=== PATIENT | female | born 2000 | race Asian ===

== ENCOUNTER → 2020-06-12 15:05 | Outpatient (BNVA) | payer MEDICAID, SELFPAY | PROVIDERS: Family Provider Pediatrics Adolescent Medicine; Visit Provider Registered Nurse | DX: J02.9 Acute pharyngitis, unspecified (principal) | CPT/HCPCS: 87880 ==

== ENCOUNTER → 2021-04-22 09:57 | Outpatient (BNVA) | payer MEDICAID, SELFPAY | PROVIDERS: Family Provider Pediatrics Adolescent Medicine; Visit Provider Obstetrics & Gynecology | DX: R39.9 Unspecified symptoms and signs involving the genitourinary system (principal) | CPT/HCPCS: 81000; 87086 ==

== ENCOUNTER 2022-02-11 09:48 | Emergency (ER) | payer MEDICAID, SELFPAY ==
[2022-02-11 09:59] VITALS: BP 107/73; PULSE 87; RESP 14; TEMP 36.4; O2SAT 97; BMI 31.3
--- NOTE | 2022-02-11 10:17 | W.ED.ALLEREA ---
HPI - Allergic Reaction General: Chief complaint: Allergic Reaction Stated complaint: Allergic Rx to meds Time Seen by Provider: 02/11/22 09:56 Source: patient Mode of arrival: ambulatory Limitations: no limitations History of Present Illness: HPI narrative: 21-year-old female presents emergency room complaining of hives and rash that she feels like is related to antibiotics. She started cephalexin 2 weeks ago the rash came up 1 week ago her last time she took it was 1 week ago. She also has a rash between the breasts at the midline. She refers to a rash on the volar surface of her forearms medially and on the upper chest. She also states her neck and throat are swelling. She has no stridor no wheezing no respiratory distress. Onset (ago): hour(s) Associated symptoms: Reports rash; Deny abdominal pain, difficulty breathing, dysphagia, dizziness, facial swelling, hoarseness, itching, lip swelling, nausea, tongue swelling or vomiting Severity: mild Treatment prior to arrival: none Previous Allergic Reaction History: none Review of Systems Const: Denies: fever(s), chills, body aches, change in appetite, fatigue or malaise ENMT: Denies: hoarseness Card: Denies: chest pain, edema, dyspnea on exertion or orthopnea Resp: Denies: dyspnea, productive cough or non-productive cough GI: Denies: abdominal pain, nausea, vomiting or dysphagia : Denies: flank pain, difficulty voiding, dysuria, urinary frequency or urinary urgency Skin/Breast: Denies: rash or pruritus Neuro: Denies: dizziness All/Imm: Denies: tongue swelling or facial swelling PFS ED PFSH: Medical History (Updated 02/11/22 @ 10:37 by Denys Albright DO) Oral contraceptive pill surveillance RhD negative Surgical History (Updated 02/11/22 @ 10:37 by Denys Albright DO) S/P wisdom tooth extraction 12/2016- outpatient Family History Family/Other No problems noted. Other Unknown family medical history Social History Smoking and tobacco status: never smoked Alcohol intake: never Physical Exam Const: COMMON NORMALS: no acute distress and patient oriented x3 GENERAL APPEARANCE: cooperative, comfortable and well kempt NUTRITIONAL APPEARANCE: obese ORIENTATION/CONSCIOUSNESS: Yes awake, Yes oriented to person, Yes oriented to place and Yes oriented to time HENMT: COMMON NORMALS: normocephalic, atraumatic, hearing grossly normal bilaterally, EAC's normal, TM's normal bilaterally and Normal external nose present HEAD & SCALP: normocephalic and atraumatic NOSE: Normal external nose present EXTERNAL AUDITORY CANAL: EAC's normal TYMPANIC MEMBRANE: TM's normal bilaterally MOUTH: Normal oral and palatal mucosa present, lip normal and tongue normal THROAT: posterior oropharynx normal and tonsils normal Eye: COMMON NORMALS: Equal, round and reactive pupils present, EOMs intact bilaterally, conjunctivae normal and no scleral icterus CONJUNCTIVA: Yes conjunctivae normal PUPIL: Yes Equal, round and reactive pupils present Neck/C-Spine: COMMON NORMALS: no meningeal signs and no JVD Lymph: LYMPHATIC: no lymphadenopathy noted Resp: COMMON NORMALS: normal respiratory effort, No retractions, No use of accessory muscles and clear to auscultation bilaterally AUSCULTATION: clear to auscultation bilaterally Cardio: COMMON NORMALS: no JVD, regular rate, regular rhythm and No murmurs present (Cardio) RATE: regular rate RHYTHM: regular rhythm HEART SOUNDS: no murmurs : COMMON NORMALS: Yes no CVA tenderness BLADDER/KIDNEY EXAM: Yes no CVA tenderness Back/Pelvis: COMMON NORMALS: no CVA tenderness LUMBAR SPINE/LOWER BACK: Yes normal to inspection Extremity: COMMON NORMALS: normal to inspection, capillary refill normal, no clubbing, cyanosis or edema, no calf tenderness and no pedal edema Neuro: COMMON NORMALS: patient oriented x3 SENSORIUM/ORIENTATION: Yes oriented to person, Yes oriented to place and Yes oriented to time MENINGEAL SIGNS: Yes no meningeal signs Psych: APPEARANCE: Yes well kempt Skin: COMMON NORMALS: no rashes or lesions noted and turgor normal GENERAL SKIN EXAM: no rashes or lesions noted and turgor normal OTHER: Patient has a Katia-like rash between the breasts feel areas of small like a mild contact dermatitis in the upper chest is very sparse and no significant rash all on the volar surface the medial forearm. Course Vital Signs: Vital signs: Vital Signs Temperature 97.6 F 02/11/22 09:59 Pulse Rate 87 07/12/22 09:59 Respiratory Rate 14 02/11/22 09:59 Blood Pressure 107/73 02/11/22 09:59 Pulse Oximetry 97 02/11/22 09:59 MDM - Allergic Reaction Medical Decision Making No evidence on exam of any type of true allergic reaction looks more like a skin infection. We will get her set up for primary care to have her use some triamcinolone in the areas of concern and nystatin powder for the candidal infection. Did not believe this is anything to do with the Keflex she last took over 1 week ago. Medical Records I reviewed the patient's medical records. Lab Data I reviewed the patient's lab results. Discharge Plan Discharge Patient Disposition: Home Clinical Impression: Katia infection, Dermatitis Condition: Stable Prescriptions: New nystatin 100,000 unit/gram powder 1 applic topical TID Qty: 60 0RF Rx Instructions: apply powder to area between breasts triamcinolone acetonide 0.1 % cream 1 applic topical BID Qty: 80 0RF Rx Instructions: do not use on face cetirizine 10 mg tablet 10 mg PO BID Qty: 60 0RF No Action nitrofurantoin macrocrystal 100 mg capsule 100 mg PO BID 7 Days Qty: 14 0RF Rx Instructions: must administer with a meal/food Discharge Orders: Discharge ED (Routine); Ordered 02/11/22 Ordered By: Denys Albright Discharge Diet: Usual diet Discharge Activity: Resume usual activity Patient Instructions: Opioid Safety Activity Restrictions/Additional Instructions: Case management will help her get established with a primary care physician. If symptoms persist I can refer you to a maintainer central office. Coding Level of Care Code ED Television Repairer for Corby Ordoñez
[2022-02-11 10:36] VITALS: O2SAT 98
--- NOTE | 2022-02-14 12:37 | DCPLANNER ---
manager wholesale had message to speak with patient about getting established with a primary care physician. manager wholesale spoke with patient, she stated that she would follow up with a primary care physician, if she felt like she needed to. Patient did not want supportive employment case manager to get her established with a primary care.
== END 2022-02-11 10:37 | disposition home or self-care (01) ==
PROVIDERS: Emergency Provider Family Medicine
DX: L30.9 Dermatitis, unspecified (principal); B37.2 Candidiasis of skin and nail
CPT/HCPCS: 99284

== ENCOUNTER → 2022-06-03 15:07 | Outpatient (BNVA) | payer MEDICAID, SELFPAY | PROVIDERS: Visit Provider Obstetrics & Gynecology | DX: Z36.87 Encounter for antenatal screening for uncertain dates (principal) | CPT/HCPCS: 76801 ==

== ENCOUNTER 2022-06-06 11:45 | Outpatient (CLI) | payer MEDICAID, SELFPAY | END 2022-06-06 11:46 | disposition home or self-care (01) | LOC: LAB 06-07 13:05 | PROVIDERS: Visit Provider Obstetrics & Gynecology | DX: Z12.4 Encounter for screening for malignant neoplasm of cervix (principal); O09.72 Supervision of high risk pregnancy due to social problems, second trimester; N62 Hypertrophy of breast; O99.320 Drug use complicating pregnancy, unspecified trimester; F12.90 Cannabis use, unspecified, uncomplicated | CPT/HCPCS: 81025; 86592; 87491; 87591; 88175 ==

== ENCOUNTER → 2022-06-18 10:50 | Outpatient (BNVA) | payer MEDICAID, SELFPAY | PROVIDERS: Visit Provider Obstetrics & Gynecology | DX: Z34.90 Encounter for supervision of normal pregnancy, unspecified, unspecified trimester (principal); O09.72 Supervision of high risk pregnancy due to social problems, second trimester | CPT/HCPCS: 80307; 84315; 85027; 86762; 86803; 86850; 86900; 87086; 87340; 87806 ==

== ENCOUNTER → 2022-08-14 14:10 | Outpatient (BNVA) | payer MEDICAID, SELFPAY | PROVIDERS: Visit Provider Obstetrics & Gynecology | DX: Z36.87 Encounter for antenatal screening for uncertain dates (principal) | CPT/HCPCS: 76805 ==

== ENCOUNTER → 2022-08-21 09:19 | Outpatient (BNVA) | payer MEDICAID, SELFPAY | PROVIDERS: Visit Provider Nurse Practitioner Women's Health | DX: O09.90 Supervision of high risk pregnancy, unspecified, unspecified trimester (principal) | CPT/HCPCS: 81000; 82950 ==

== ENCOUNTER → 2022-08-28 08:00 | Outpatient (BNVA) | payer MEDICAID, SELFPAY | PROVIDERS: Visit Provider Obstetrics & Gynecology | DX: O09.90 Supervision of high risk pregnancy, unspecified, unspecified trimester (principal); Z3A.00 Weeks of gestation of pregnancy not specified | CPT/HCPCS: 82951; 82952 ==

== ENCOUNTER → 2022-09-16 10:53 | Outpatient (BNVA) | payer MEDICAID, SELFPAY | PROVIDERS: Visit Provider Nurse Practitioner Women's Health | DX: O09.70 Supervision of high risk pregnancy due to social problems, unspecified trimester (principal) | CPT/HCPCS: 76816; 81000; 85027; 86850 ==

== ENCOUNTER → 2022-10-02 09:30 | Outpatient (BNVA) | payer MEDICAID, SELFPAY | PROVIDERS: Visit Provider Obstetrics & Gynecology | DX: O09.70 Supervision of high risk pregnancy due to social problems, unspecified trimester (principal); R82.90 Unspecified abnormal findings in urine; Z3A.00 Weeks of gestation of pregnancy not specified | CPT/HCPCS: 81000; 85027; 87086 ==

== ENCOUNTER → 2022-10-07 08:04 | Outpatient (BNVA) | payer MEDICAID, SELFPAY | PROVIDERS: Visit Provider Obstetrics & Gynecology | DX: O09.70 Supervision of high risk pregnancy due to social problems, unspecified trimester (principal); Z3A.00 Weeks of gestation of pregnancy not specified | CPT/HCPCS: 81000 ==

== ENCOUNTER → 2022-10-14 07:42 | Outpatient (BNVA) | payer MEDICAID, SELFPAY | PROVIDERS: Visit Provider Obstetrics & Gynecology | DX: O09.93 Supervision of high risk pregnancy, unspecified, third trimester (principal); Z3A.32 32 weeks gestation of pregnancy | CPT/HCPCS: 76816; 81000; 82728; 85025 ==

== ENCOUNTER → 2022-10-28 10:09 | Outpatient (BNVA) | payer MEDICAID, SELFPAY | PROVIDERS: Visit Provider Nurse Practitioner Women's Health | DX: O09.70 Supervision of high risk pregnancy due to social problems, unspecified trimester (principal); D75.839 Thrombocytosis, unspecified; O99.019 Anemia complicating pregnancy, unspecified trimester; Z30.2 Encounter for sterilization; Z67.91 Unspecified blood type, Rh negative; O99.320 Drug use complicating pregnancy, unspecified trimester; F12.90 Cannabis use, unspecified, uncomplicated; Z3A.00 Weeks of gestation of pregnancy not specified | CPT/HCPCS: 81000; 82607; 82746; 83550 ==

== ENCOUNTER → 2022-11-11 11:28 | Outpatient (BNVA) | payer MEDICAID, SELFPAY | PROVIDERS: PCP Obstetrics & Gynecology; Visit Provider Obstetrics & Gynecology | DX: O09.70 Supervision of high risk pregnancy due to social problems, unspecified trimester (principal) | CPT/HCPCS: 81000; 85025; 87081 ==

== ENCOUNTER 2022-11-14 08:32 | Oncology outpatient (recurring) (ONCR) | payer MEDICAID, SELFPAY ==
[2022-11-07 07:51] LABS: Basophils % 0.2 %; Eosinophils # 0.1 10^3/uL (0.0-0.8); Eosinophils % 1.3 %; Hematocrit 33.8 % (37.0-47.0); Hemoglobin 10.4 g/dL (11.5-15.3); Lymphocytes # 2.9 10^3/uL (0.8-4.8); Lymphocytes % 27.4 %; Mean Corpuscular HGB Conc 30.8 g/dL (30.0-36.0); Mean Corpuscular Hemoglobin 20.2 pg (28.0-34.0); Mean Corpuscular Volume 65.5 fl (81-99); Mean Platelet Volume 9.8 fL (7.4-10.4); Monocytes # 0.6 10^3/uL (0.2-0.9); Monocytes % 5.8 %; Neutrophils # 6.83 10^3/uL (1.8-7.7); Neutrophils % 64.8 %; Nucleated Red Blood Cells % 0 %; Platelet Count 399 10^3/cmm (130-400); Red Blood Count 5.16 10^6/uL (4.1-5.3); Red Cell Distribution Width 15.9 % (12.1-15.1); White Blood Count 10.5 10^3/uL (4.0-10.0)
== END 2022-11-30 23:59 | disposition home or self-care (01) ==
PROVIDERS: PCP Obstetrics & Gynecology; Visit Provider Internal Medicine Medical Oncology
DX: O99.019 Anemia complicating pregnancy, unspecified trimester (principal); D64.9 Anemia, unspecified
CPT/HCPCS: 36415; 85025

== ENCOUNTER → 2022-11-18 10:59 | Outpatient (BNVA) | payer MEDICAID, SELFPAY | PROVIDERS: PCP Obstetrics & Gynecology; Visit Provider Obstetrics & Gynecology | DX: O09.70 Supervision of high risk pregnancy due to social problems, unspecified trimester (principal); O99.019 Anemia complicating pregnancy, unspecified trimester; D75.839 Thrombocytosis, unspecified; O99.320 Drug use complicating pregnancy, unspecified trimester; F12.90 Cannabis use, unspecified, uncomplicated; Z3A.00 Weeks of gestation of pregnancy not specified | CPT/HCPCS: 81000 ==

== ENCOUNTER → 2022-11-25 10:58 | Outpatient (BNVA) | payer MEDICAID, SELFPAY | PROVIDERS: PCP Obstetrics & Gynecology; Visit Provider Obstetrics & Gynecology | DX: O09.70 Supervision of high risk pregnancy due to social problems, unspecified trimester (principal) | CPT/HCPCS: 81000; 85025 ==

== ENCOUNTER 2022-12-02 17:50 | Outpatient (CLI) | payer MEDICAID, SELFPAY ==
[2022-12-02] VITALS (18 sets, daily range): BP systolic 112–132; BP diastolic 63–84; PULSE 85–121; RESP 15; TEMP 35.9–36.2; O2SAT 98–100; BMI 33.2
[2022-12-02 20:30] LABS: Add Urine Culture? No; Bacteria Urine 2+ /hpf; Bilirubin Urine Neg (Negative); Blood Urine Neg (Negative); Glucose Urine UA Norm (Normal); Ketones Urine 1+ (Negative); Leukocyte Esterase Urine 2+ (Negative); Mucus Urine 1+ /hpf; Nitrate Urine Negative (Negative); Protein Urine Trace (Negative); RBC Urine 0-4 /hpf (0-2); Squamous Epithelial Cell Urine 15-25 /hpf (0-5); Urine Appearance SL Hazy (CLEAR); Urine Color Yellow (Yellow); Urobilinogen Urine Neg (Negative); pH Urine 5 (5-7)
[2022-12-02] MEDS: dextrose 5%-lactated ringers 1,000 ML 999 ML IV (20:34)
== END 2022-12-02 22:35 | disposition home or self-care (01) ==
LOC: OPOB 17:55 → OBGYN 17:55
PROVIDERS: PCP Obstetrics & Gynecology; Visit Provider Obstetrics & Gynecology
DX: O47.9 False labor, unspecified (principal); Z3A.00 Weeks of gestation of pregnancy not specified
CPT/HCPCS: 36415; 59025; 81001; 99211; J7121

== ENCOUNTER → 2022-12-09 11:24 | Outpatient (BNVA) | payer MEDICAID, SELFPAY | PROVIDERS: PCP Obstetrics & Gynecology; Visit Provider Obstetrics & Gynecology | DX: O09.70 Supervision of high risk pregnancy due to social problems, unspecified trimester (principal); Z3A.00 Weeks of gestation of pregnancy not specified | CPT/HCPCS: 81000 ==

== ENCOUNTER 2022-12-10 15:31 | Inpatient (IN) | payer MEDICAID, SELFPAY ==
[2022-12-10] VITALS (13 sets, daily range): BP systolic 108–130; BP diastolic 65–84; PULSE 86–109; RESP 16; TEMP 35.7–36.4; BMI 33.4
[2022-12-10 19:02] LABS: Basophils % 0.1 %; Eosinophils # 0.1 10^3/uL (0.0-0.8); Eosinophils % 0.6 %; Hematocrit 32.1 % (37.0-47.0); Lymphocytes # 2.5 10^3/uL (0.8-4.8); Lymphocytes % 21.3 %; Mean Corpuscular HGB Conc 31.2 g/dL (30.0-36.0); Mean Corpuscular Hemoglobin 20.2 pg (28.0-34.0); Mean Corpuscular Volume 64.7 fl (81-99); Monocytes # 0.6 10^3/uL (0.2-0.9); Monocytes % 4.7 %; Neutrophils # 8.51 10^3/uL (1.8-7.7); Nucleated Red Blood Cells % 0 %; Platelet Count 380 10^3/cmm (130-400); Red Blood Count 4.96 10^6/uL (4.1-5.3); Red Cell Distribution Width 15.7 % (12.1-15.1); White Blood Count 11.7 10^3/uL (4.0-10.0)
[2022-12-10 19:16] LABS: Amphetamines Screen Urine Negative (Negative); Barbiturates Screen Urine Negative (Negative); Benzodiazepines Screen Urine Negative (Negative); Cocaine Screen Urine Negative (Negative); Opiate Screen Urine Negative (Negative); PCP Screen Urine Negative (Negative); THC Screen Urine Negative (Negative)
[2022-12-10] MEDS: miSOPROStol 100 mcg tablet 25 MCG VAGINAL (20:30)
--- NOTE | 2022-12-10 20:55 | PM.OPHPUD ---
Labor & Delivery H&P Update Date of Procedure: December 10, 2022 Date H&P Performed: 12/09/22 H&P update information: I have reviewed H&P completed within last 30 days, I have examined patient prior to procedure and No changes to prior documentation Admission Diagnosis:
[2022-12-11] VITALS (42 sets, daily range): BP systolic 105–144; BP diastolic 57–91; PULSE 77–141; RESP 16–18; TEMP 35.8–36.9; O2SAT 98–100
[2022-12-11] MEDS: miSOPROStol 100 mcg tablet 25 MCG VAGINAL (00:29)
[2022-12-11] MEDS: lactated ringers 1,000 ML 999 ML IV (01:14)
[2022-12-11] MEDS: dextrose 5%-lactated ringers 1,000 ML 125 ML IV ×2 (07:44)
--- NOTE | 2022-12-11 09:56 | PM.DELIVERY ---
Delivery Note: Date of delivery: December 11, 2022 Pre-delivery diagnoses: term labor induction Post-delivery diagnoses: same Procedure: labor induction Vaginal delivery Delivering Physician: Perfecto Lopez MD Estimated blood loss (mL): 300 Findings: , vigorous female infant Normal placenta and cord Cord gases and blood obtained No episiotomy or lacerations EBL:? 300 cc No complications Post-Delivery Status: good History History History 2 Term 1 0 Miscarriages/Ectopic 0 Living Children 1 A&P Assessment and plan (1) Vaginal delivery: care (2) RhD negative: Coding Level of Care Code Acute Code for Chg Fwd Diagnoses Vaginal delivery O80 RhD negative Z67.91 Time Spent (min) 40
[2022-12-11] MEDS: acetaminophen 325 mg Tablet 650 MG PO ×2 (15:09→21:25)
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
[2022-12-11 20:52] LABS: Hematocrit 32.4 % (37.0-47.0); Hemoglobin 10.1 g/dL (11.5-15.3); Mean Corpuscular HGB Conc 31.2 g/dL (30.0-36.0); Mean Corpuscular Hemoglobin 20.1 pg (28.0-34.0); Mean Corpuscular Volume 64.5 fl (81-99); Mean Platelet Volume 9.6 fL (7.4-10.4); Platelet Count 391 10^3/cmm (130-400); Red Blood Count 5.02 10^6/uL (4.1-5.3); Red Cell Distribution Width 15.8 % (12.1-15.1); White Blood Count 18.8 10^3/uL (4.0-10.0)
[2022-12-12 04:59] VITALS: BP 96/59; PULSE 82; RESP 16; TEMP 36.8; O2SAT 98
--- NOTE | 2022-12-12 09:16 | PC.NURSE ---
DFS worker wesly varghese at bedside.
[2022-12-12] MEDS: prenatal vitamin Capsule 1 CAP PO (09:38)
[2022-12-12 09:39] VITALS: BP 106/64; PULSE 98; RESP 17; TEMP 36.7; O2SAT 97
[2022-12-12] MEDS: acetaminophen 325 mg Tablet 650 MG PO (13:21)
--- NOTE | 2022-12-12 16:24 | P.DS_ITS ---
Discharge Providers TRESTLE BUILDER Date of Admission: 12/10/22 15:31 Date of Discharge: 12/12/22 Attending Provider at Admission: Rio Sanchez MD Attending Provider at Discharge: Rio Sanchez MD Primary TRESTLE BUILDER: Rio Sanchez MD Primary Care Provider: Rio Sanchez MD Diagnoses at Discharge Discharge Diagnosis (1) Vaginal delivery: Status: Acute (2) RhD negative: Status: Resolved Reason for Visit Reason for Visit: IOL Hospital Course Hospital Course Vaginal delivery without complications Information Peripartum Data: Infant Delivery Method: Vaginal History History History 2 Term 1 0 Miscarriages/Ectopic 0 Living Children 1 Discharge Data Studies Completed and Pending Pending at discharge Category Date Time Status Complete Crossmatch Routine Lab 12/11/22 09:41 Results Rho D Immune Globulin Routine Lab 12/11/22 09:41 Results Type and Screen Routine Lab 12/11/22 09:41 Results Laboratory Results WBC 18.8 10^3/uL (4.0-10.0) H 12/11/22 20:42 RBC 5.02 10^6/uL (4.1-5.3) 12/11/22 20:42 Hgb 10.1 g/dL (11.5-15.3) L 12/11/22 20:42 Hct 32.4 % (37.0-47.0) L 12/11/22 20:42 MCV 64.5 fl (81-99) L 12/11/22 20:42 MCH 20.1 pg (28.0-34.0) L 12/11/22 20:42 MCHC 31.2 g/dL (30.0-36.0) 12/11/22 20:42 RDW 15.8 % (12.1-15.1) H 12/11/22 20:42 Plt Count 391 10^3/cmm (130-400) 12/11/22 20:42 MPV 9.6 fL (7.4-10.4) 12/11/22 20:42 Neut % (Auto) 73.0 % 12/10/22 18:25 Lymph % (Auto) 21.3 % 12/10/22 18:25 [place] % (Auto) 4.7 % 12/10/22 18:25 Eos % (Auto) 0.6 % 12/10/22 18:25 Baso % (Auto) 0.1 % 12/10/22 18:25 Neut # (Auto) 8.51 10^3/uL (1.8-7.7) H 12/10/22 18:25 Lymph # (Auto) 2.5 10^3/uL (0.8-4.8) 12/10/22 18:25 [place] # (Auto) 0.6 10^3/uL (0.2-0.9) 12/10/22 18:25 Eos # (Auto) 0.1 10^3/uL (0.0-0.8) 12/10/22 18:25 Baso # (Auto) 0.0 10^3/uL (0.0-0.1) 12/10/22 18:25 Nucleated RBC % (auto) 0 % 12/10/22 18:25 Nucleated RBCs # 0.0 /100WBC 12/10/22 18:25 Urine Opiates Screen Negative ng/mL (Negative) 12/10/22 18:25 Ur Barbiturates Screen Negative ng/mL (Negative) 12/10/22 18:25 Ur Phencyclidine Scrn Negative ng/mL (Negative) 12/10/22 18:25 Ur Amphetamines Screen Negative ng/mL (Negative) 12/10/22 18:25 U Benzodiazepines Scrn Negative ng/mL (Negative) 12/10/22 18:25 Urine Cocaine Screen Negative ng/mL (Negative) 12/10/22 18:25 U Marijuana (THC) Screen Negative ng/mL (Negative) 12/10/22 18:25 Blood Type B Negative 12/10/22 18:25 Rho(D) Type Negative 12/10/22 18:25 Antibody Screen Negative 12/10/22 18:25 Procedures Performed labor induction vaginal delivery Vitals Last Vital Signs Temp 98.1 F 12/12/22 09:39 Pulse 99 12/12/22 18:00 Resp 16 12/12/22 18:00 BP 108/72 12/12/22 18:00 Pulse Ox 97 12/12/22 18:00 O2 Del Method Room Air 12/12/22 09:39 Discharge Plan Discharge Patient Disposition: Home Condition: Stable Prescriptions: Continued flinstone gummies PO .daily ferrous sulfate 325 mg (65 mg iron) tablet 325 mg PO BID Qty: 180 1RF Discharge Orders: Discharge Order (Routine); Ordered 12/12/22 Ordered By: Perfecto Lopez Discharge Diet: Usual diet Discharge Activity: Increase activity as tolerated Patient Instructions: Depression (DC), Bleeding (DC), Preeclampsia and Eclampsia After Delivery (GEN), OB Discharge Report, OB Food/Drug Interaction Guide, OB Care at Home, Opioid Safety, OB Home Care, OB Vaginal Deliveries - [facility], Abnormal Bleeding Activity Restrictions/Additional Instructions: Please call [facility] at [phone] on the next business day to schedule your 6 week visit Discharge Attestations TRESTLE BUILDER Time Spent in Discharge Care*: less than 30 min Coding Level of Care Code Acute Code for Chg Fwd Diagnoses Vaginal delivery O80 RhD negative Z67.91 Time Spent (min) 25
[2022-12-12 18:00] VITALS: BP 108/72; PULSE 99; RESP 16; O2SAT 97
== END 2022-12-12 18:30 | disposition home or self-care (01) | DRG 806 ==
LOC: OPOB 15:44 → OBGYN 15:44 → OPOB 15:51 → OBGYN 15:51
PROVIDERS: Obstetrics & Gynecology; Admitting Provider Obstetrics & Gynecology; PCP Obstetrics & Gynecology; Visit Provider Obstetrics & Gynecology
DX: O99.02 Anemia complicating childbirth (principal); O36.0930 Maternal care for other rhesus isoimmunization, third trimester, not applicable or unspecified; Z37.0 Single live birth; O99.324 Drug use complicating childbirth; O99.12 Other diseases of the blood and blood-forming organs and certain disorders involving the immune mechanism complicating childbirth; D64.9 Anemia, unspecified; F12.90 Cannabis use, unspecified, uncomplicated; D69.6 Thrombocytopenia, unspecified; Z3A.40 40 weeks gestation of pregnancy
CPT/HCPCS: 36415; 59025; 59409; 80306; 85025; 85027; 86850; 86900; 99211; J7040; J7120; J7121

== ENCOUNTER 2023-03-17 10:04 | Oncology outpatient (recurring) (ONCR) | payer OTHER, MEDICAID, SELFPAY ==
[2023-03-17 10:21] VITALS: BP 115/75; PULSE 106; RESP 18; TEMP 36.9; O2SAT 98
[2023-03-17 10:45] LABS: LAB Peripheral Smear Sent for Review
[2023-03-17 10:46] LABS: Basophils # 0.1 10^3/uL (0.0-0.1); Basophils % 0.7 %; Eosinophils # 5.4 10^3/uL (0.0-0.8); Eosinophils % 34.4 %; Hematocrit 39.6 % (37.0-47.0); Hemoglobin 12.1 g/dL (11.5-15.3); Lymphocytes # 4.2 10^3/uL (0.8-4.8); Lymphocytes % 27.1 %; Mean Corpuscular HGB Conc 30.6 g/dL (30.0-36.0); Mean Corpuscular Hemoglobin 19.5 pg (28.0-34.0); Mean Corpuscular Volume 63.7 fl (81-99); Mean Platelet Volume 9.5 fL (7.4-10.4); Monocytes # 0.5 10^3/uL (0.2-0.9); Monocytes % 3.2 %; Neutrophils # 5.36 10^3/uL (1.8-7.7); Neutrophils % 34.4 %; Nucleated Red Blood Cells % 0 %; Platelet Count 467 10^3/cmm (130-400); Red Blood Count 6.22 10^6/uL (4.1-5.3); White Blood Count 15.6 10^3/uL (4.0-10.0)
[2023-03-17 11:06] LABS: Ferritin 58 ng/mL (15-150); Iron 39 ug/dL (37-145)
[2023-03-17 11:19] LABS: Percent Saturation 13.9 % (20-50); Total Iron Binding Capacity 279 mcg/dl; Unsaturated Iron Binding 240 ug/dL (112-347)
[2023-03-26 05:56] LABS: HPLC Confirms; Hematocrit 38.1 % (35.0-45.0); Hemoglobin 11.6 g/dL (11.7-15.5); Hemoglobinopathy Ferritin 46 ng/mL (16-154); Hemoglobinopathy MCH 19.8 pg (27.0-33.0); Hemoglobinopathy MCHC 30.4 g/dL (32.0-36.0); Hemoglobinopathy MCV 64.9 fL (80.0-100.0); Hemoglobinopathy RDW 17.2 % (11.0-15.0); Red Blood Cell Count 5.87 Mill/uL (3.80-5.10)
== END 2023-04-02 23:59 | disposition home or self-care (01) ==
PROVIDERS: PCP Obstetrics & Gynecology; Visit Provider Internal Medicine Medical Oncology
DX: D64.9 Anemia, unspecified
CPT/HCPCS: 36415; 82728; 83020; 83540; 83550; 85014; 85018; 85025; 85041

== ENCOUNTER 2023-03-30 11:33 | Emergency (ER) | payer OTHER, MEDICAID, SELFPAY ==
[2023-03-30 12:09] VITALS: BP 116/76; PULSE 105; RESP 20; TEMP 36.8; O2SAT 99; BMI 33.4
--- NOTE | 2023-03-30 14:17 | US_ITS ---
WS: [id number] RIGHT UPPER QUADRANT ULTRASOUND HISTORY: RUQ pain, N/V/D COMPARISON: None available. Liver: 14.6 cm in length. Normal size liver and echogenicity. No bile duct dilatation or mass. Portal Vein: Normal hepatopetal flow with monophasic waveform. Gallbladder: Normally distended gallbladder. There is mild gallbladder wall thickening diffusely levar uring up to 9 mm. There are numerous small stones within the gallbladder. No pericholecystic fluid. N o bile duct dilatation. CBD: 0.5 cm Pancreas: Normal size and echogenicity. Right kidney: 9.8 cm in length. Normal size and echogenicity. No hydronephrosis or mass. Aorta and IVC: Unremarkable abdominal aorta and IVC. No ascites. IMPRESSION: Cholelithiasis with very mild early changes of acute cholecystitis suspected due to mild gallbladder wall thickening. No bile duct obstruction.
--- NOTE | 2023-03-30 14:17 | W.ED.ABDPA2 ---
HPI - Abdominal Pain General: Chief Complaint: Abdominal Pain Stated Complaint: abd pain Time Seen by Provider: 03/30/23 14:13 Source: patient Mode of arrival: ambulatory Limitations: no limitations History of Present Illness: Patient is a 22-year-old female presents to ED today with complaint of right upper quadrant abdominal pain, nausea, vomiting, and diarrhea. Patient states that 4-5 days ago she began noticing right upper quadrant abdominal pain that was colicky and intermittent in nature. She denies any alleviating or worsening factors to her discomfort. To her knowledge it does not seem to be affected by eating. She states since then pain has progressively became more constant and she has now had a few episodes of nonbloody emesis and diarrhea. She states pain seems to radiate into her back. Denies urinary symptoms. Denies fevers. No yellowing to her skin or eyes that she has appreciated. MD elicited complaint: abdominal pain Pertinent past history: none Onset (ago): day(s) Pain Consistency: constant Location: RUQ Severity: moderate Radiation: none Migration to: no migration Exacerbating factors: nothing Relieving factors: nothing Associated Symptoms: Reports diarrhea, nausea and vomiting; Denies chills, dysuria, fever(s), hematochezia, hematemesis and melena Related Data: Patient : No Review of Systems Const: Denies: fever(s), chills, body aches, fatigue or malaise Card: Denies: chest pain Resp: Denies: dyspnea GI: Reports: abdominal pain, nausea, vomiting and diarrhea; Denies: hematemesis, hematochezia or melena : Denies: flank pain, difficulty voiding, dysuria, urinary frequency, urinary urgency or urinary hesitancy Musc: Denies: neck pain, back pain, extremity pain or joint pain Skin/Breast: Denies: rash Neuro: Denies: headache(s), numbness in extremities, weakness in extremities, sensory changes or dizziness PFSH ED PFSH: Medical History Anemia Anxiety Psychiatric care Vaginal delivery Surgical History S/P wisdom tooth extraction 12/2016- outpatient Family History Family/Other No problems noted. Other Unknown family medical history Social History Smoking and tobacco status: current some day smoker cigarettes Packs smoked per day: 1 Years cigarettes smoked: 2 Alcohol intake: former Substance/Drug Use: never Physical Exam Const: COMMON NORMALS: no acute distress, patient oriented x3, no limitations, healthy appearing, alert and well nourished GENERAL APPEARANCE: cooperative NUTRITIONAL APPEARANCE: overweight ORIENTATION/CONSCIOUSNESS: Yes awake, Yes oriented to person, Yes oriented to place and Yes oriented to time HENMT: COMMON NORMALS: normocephalic and atraumatic HEAD & SCALP: normal to inspection, normocephalic and atraumatic Eye: COMMON NORMALS: no scleral icterus Resp: COMMON NORMALS: normal respiratory effort and clear to auscultation bilaterally AUSCULTATION: clear to auscultation bilaterally Cardio: COMMON NORMALS: regular rate and regular rhythm RATE: regular rate RHYTHM: regular rhythm GI: COMMON NORMALS: Normal to inspection, nondistended, normoactive bowel sounds present, Soft to palpation, No hepatosplenomegaly present and no masses INSPECTION: Yes normal to inspection AUSCULTATION: Yes normoactive bowel sounds PALPATION: Yes Soft to palpation, Yes Tenderness to palpation present (GI) (RUQ, epigastric), No Guarding due to palpation present (GI), No Rigid due to palpation and Yes No hepatosplenomegaly present : COMMON NORMALS: Yes no CVA tenderness BLADDER/KIDNEY EXAM: Yes no CVA tenderness Back/Pelvis: COMMON NORMALS: no CVA tenderness, thoracic and lumbar spine normal to inspection, no thoracic nor lumbar tenderness and thoraco-lumbar ROM normal Extremity: COMMON NORMALS: normal to inspection GENERAL: Yes normal exam except as noted Neuro: PORFIRIO COMA SCALE: document GCS findings Porfirio coma scale eye opening: Spontaneous [place] coma scale verbal response: Orientated Porfirio coma scale motor response: Obey commands [place] coma scale total score: 15 COMMON NORMALS: patient oriented x3, moves all extremities, no focal motor deficits, no sensory deficits noted and gait normal SENSORIUM/ORIENTATION: Yes alert, Yes oriented to person, Yes oriented to place and Yes oriented to time Skin: COMMON NORMALS: no rashes or lesions noted GENERAL SKIN EXAM: no rashes or lesions noted TRAUMA: no lacerations or abrasions Course Consultations: Consultation #1: Dr. Williamson-will consult on patient in ED; after consult he recommends IV cipro/flagyl and discharge home with oral antibiotics and meloxicam and he will follow up in office next week Vital Signs: Vital signs: Vital Signs Temperature 98.8 F 03/30/23 16:07 Pulse Rate 111 H 03/30/23 16:07 Respiratory Rate 16 03/30/23 16:07 Blood Pressure 107/72 03/30/23 16:07 Pulse Oximetry 98 03/30/23 16:07 Oxygen Delivery Me thod Room Air 03/30/23 16:07 MDM - Abdominal Pain Medical Decision Making Patient is a 22-year-old female here for right upper quadrant abdominal pain over the past 4 to 5 days. Pain has become progressively more severe and constant. She is now having nausea and diarrhea. No fevers. Blood work shows a white count of 17.9. LFTs are normal. UA without infection (blood most likely from current menstrual cycle). Gallbladder ultrasound showing cholelithiasis with very mild early changes of acute cholecystitis. Spoke with general surgeon Dr. Williamson who consulted on patient in the ED. He feels with patient's mild US findings and normal liver enzymes that she can be discharged with oral antibiotics follow-up in office. At his recommendation she was given IV Cipro/Flagyl here prior to discharge. He requests she get placed on Meloxicam daily x7 days. Strict return to ED precautions given. Lab Data 03/30/23 13:48 03/30/23 13:48 Labs/Radiology: Laboratory Results WBC 17.94 10^3/uL (3.29-11.43) H 03/30/23 13:48 RBC 5.64 10^6/uL (3.85-5.65) 03/30/23 13:48 Hgb 11.50 g/dL (11.27-16.99) 03/30/23 13:48 Hct 37.4 % (36-47) 03/30/23 13:48 MCV 66.3 fl (85-98) L 03/30/23 13:48 MCH 20.4 pg (27-33) L 03/30/23 13:48 MCHC 30.7 g/dL (30-55) 03/30/23 13:48 RDW 18.4 % (12.1-15.1) H 03/30/23 13:48 Plt Count 530 10^3/cmm (157-399) H 03/30/23 13:48 MPV 9.3 fL (7.4-10.4) 03/30/23 13:48 Neut % (Auto) 87.6 % 03/30/23 13:48 Lymph % (Auto) 7.6 % 03/30/23 13:48 [place] % (Auto) 3.8 % 03/30/23 13:48 Eos % (Auto) 0.2 % 03/30/23 13:48 Baso % (Auto) 0.2 % 03/30/23 13:48 Neut # (Auto) 15.72 10^3/uL (1.8-7.7) H 03/30/23 13:48 Lymph # (Auto) 1.4 10^3/uL (0.8-4.8) 03/30/23 13:48 [place] # (Auto) 0.7 10^3/uL (0.2-0.9) 03/30/23 13:48 Eos # (Auto) 0.0 10^3/uL (0.0-0.8) 03/30/23 13:48 Baso # (Auto) 0.0 10^3/uL (0.0-0.1) 03/30/23 13:48 Nucleated RBC % (auto) 0 % 03/30/23 13:48 Nucleated RBCs # 0.0 /100WBC 03/30/23 13:48 Sodium 136 mmol/L (136-145) 03/30/23 13:48 Potassium 3.8 mmol/L (3.5-5.1) 03/30/23 13:48 Chloride 100 mmol/L (98-107) 03/30/23 13:48 Carbon Dioxide 24 mmol/L (22-29) 03/30/23 13:48 Anion Gap 15.8 (5-19) 03/30/23 13:48 BUN 8 mg/dL (6-20) 03/30/23 13:48 Creatinine 0.5 mg/dL (0.5-0.9) 03/30/23 13:48 GFR Calculation 186.7 mL/min (90-130) H 03/30/23 13:48 Glucose 126 mg/dL (65-115) H 03/30/23 13:48 Calculated Osmolality 282 mOsm/kg (285-295) L 03/30/23 13:48 Calcium 9.1 mg/dL (8.5-10.5) 03/30/23 13:48 Total Bilirubin 0.9 mg/dL (0.15-1.2) 03/30/23 13:48 AST 16 U/L (0-32) 03/30/23 13:48 ALT 18 U/L (0-33) 03/30/23 13:48 Alkaline Phosphatase 99 U/L (35-105) 03/30/23 13:48 Total Protein 8.5 g/dL (6.6-8.7) 03/30/23 13:48 Albumin 4.5 g/dL (3.5-5.2) 03/30/23 13:48 Globulin 4.0 g/dL (1.3-4.6) 03/30/23 13:48 Lipase 18 U/L (13-60) 03/30/23 13:48 HCG, Qual Negative (Negative) 03/30/23 13:48 Urine Color Yellow (Yellow) 03/30/23 14:31 Urine Appearance Sl hazy (CLEAR) A 03/30/23 14:31 Urine pH 5 (5-7) 03/30/23 14:31 Ur Specific [place] 1.020 (1.005-1.030) 03/30/23 14:31 Urine Protein Neg (Negative) 03/30/23 14:31 Urine Glucose (UA) Norm (Normal) 03/30/23 14:31 Urine Ketones 1+ (Negative) H 03/30/23 14:31 Urine Blood 3+ (Negative) H 03/30/23 14:31 Urine Nitrate Negative (Negative) 03/30/23 14:31 Urine Bilirubin Neg (Negative) 03/30/23 14:31 Urine Urobilinogen Norm mg/dL (Negative) 03/30/23 14:31 Ur Leukocyte Esterase Negative (Negative) 03/30/23 14:31 Urine RBC 0-4 /hpf (0-2) H 03/30/23 14:31 Urine WBC 0-4 /hpf (0-5) H 03/30/23 14:31 Ur Squamous Epith Cells 5-10 /hpf (0-5) H 03/30/23 14:31 Amorphous Sediment Not Reportable 03/30/23 14:31 Urine Bacteria Trace /hpf (NONE) 03/30/23 14:31 Urine Mucus 2+ /hpf 03/30/23 14:31 Discharge Plan Discharge Patient Disposition: Home Clinical Impression: Cholelithiasis Qualifiers: Cholelithiasis location: gallbladder Cholecystitis presence: without cholecystitis Biliary obstruction: without biliary obstruction Qualified Code(s): K80.20 - Calculus of gallbladder without cholecystitis without obstruction Condition: Stable Prescriptions: New metronidazole 500 mg tablet 500 mg PO BID 7 Days Qty: 14 0RF Cipro 500 mg tablet 500 mg PO Q12H Qty: 14 0RF meloxicam 7.5 mg tablet 7.5 mg PO DAILY Qty: 7 0RF ondansetron 4 mg tablet,disintegrating 4 mg PO Q8H PRN (Reason: nausea and vomiting) Qty: 14 0RF No Action Tylenol Ex Str Rapid Release 500 mg Tablet 1,000 mg PO Q6H PRN (Reason: Pain) Women's Probiotic 25B cell-25B cell-50 mg Capsule 2 cap PO QAM Discharge Orders: Discharge ED (Routine); Ordered 03/30/23 Ordered By: Clarisa Orozco Referrals: Rio Sanchez MD [Primary Care Provider] - Patient Instructions: Cholecystitis (ED), Biliary Colic (ED), Gallstones (ED) Activity Restrictions/Additional Instructions: As I discussed you have been consulted on by our general surgeon Dr. Williamson. Per his recommendations we are discharging you home with oral antibiotics, meloxicam for pain, and nausea medications. He would like to follow-up with you in office next week for reevaluation. Case management should contact you shortly to help set you up with this follow-up appointment. As we discussed you need to return to the emergency department for worsening abdominal pain, repetitive episodes of vomiting or diarrhea, yellowing to your skin or eyes, fevers greater than 100.4, generally feeling worse or unwell, or any other concerns you may have. I hope you begin to feel better soon. Coding Level of Care Code ED Land Classifier for Corby Ordoñez
[2023-03-30 14:37] LABS: Basophils % 0.2 %; Eosinophils % 0.2 %; Hematocrit 37.4 % (36-47); Lymphocytes # 1.4 10^3/uL (0.8-4.8); Lymphocytes % 7.6 %; Mean Corpuscular HGB Conc 30.7 g/dL (30-55); Mean Corpuscular Hemoglobin 20.4 pg (27-33); Mean Corpuscular Volume 66.3 fl (85-98); Mean Platelet Volume 9.3 fL (7.4-10.4); Monocytes # 0.7 10^3/uL (0.2-0.9); Monocytes % 3.8 %; Neutrophils # 15.72 10^3/uL (1.8-7.7); Neutrophils % 87.6 %; Nucleated Red Blood Cells % 0 %; Platelet Count 530 10^3/cmm (157-399); Red Blood Count 5.64 10^6/uL (3.85-5.65); Red Cell Distribution Width 18.4 % (12.1-15.1); White Blood Count 17.94 10^3/uL (3.29-11.43)
[2023-03-30 14:43] LABS: Add Urine Microscopic? YES; Bacteria Urine TRACE /hpf; Bilirubin Urine Neg (Negative); Blood Urine 3+ (Negative); Glucose Urine UA Norm (Normal); Ketones Urine 1+ (Negative); Leukocyte Esterase Urine Negative (Negative); Mucus Urine 2+ /hpf; Nitrate Urine Negative (Negative); Protein Urine Neg (Negative); RBC Urine 0-4 /hpf (0-2); Urine Appearance SL Hazy (CLEAR); Urine Color Yellow (Yellow); Urobilinogen Urine Norm (Negative); WBC Urine 0-4 /hpf (0-5); pH Urine 5 (5-7)
[2023-03-30 14:44] LABS: Add Urine Culture? No
[2023-03-30 14:50] LABS: HCG, Serum Qual Negative (Negative)
[2023-03-30 14:54] LABS: Alanine Aminotransferase 18 U/L (0-33); Albumin Level 4.5 g/dL (3.5-5.2); Alkaline Phosphatase 99 U/L (35-105); Anion Gap 15.8 (5-19); Aspartate Amino Transferase 16 U/L (0-32); Blood Urea Nitrogen 8 mg/dL (6-20); Calcium 9.1 mg/dL (8.5-10.5); Carbon Dioxide 24 mmol/L (22-29); Chloride 100 mmol/L (98-107); Glomerular Filtration Rate 186.7 mL/min (90-130); Glucose 126 mg/dL (65-115); Lipase 18 U/L (13-60); Osmolality Calculated 282 mOsm/kg (285-295); Potassium 3.8 mmol/L (3.5-5.1); Sodium 136 mmol/L (136-145); Total Bilirubin 0.9 mg/dL (0.15-1.2); Total Protein 8.5 g/dL (6.6-8.7)
[2023-03-30 16:07] VITALS: BP 107/72; PULSE 111; RESP 16; TEMP 37.1; O2SAT 98
[2023-03-30] MEDS: sodium chloride 0.9% 1,000 ML 999 ML IV (16:49)
[2023-03-30] MEDS: ciprofloxacin 200 MG/100 ML PREMIX 100 MG IV (16:57)
--- NOTE | 2023-03-30 16:59 | P.CONIM_ITS ---
Providers/Reason For Consult Consulting Physician/Specialty*: General surgery Reason for Consult*: Cholecystitis Primary Care Provider: Rio Sanchez MD History of Present Illness History of Present Illness Tamar Butcher is a 22 year old female who has history of biliary colic, presents today complaining of 4 days of right upper quadrant abdominal pain, no fever, no chills, 1 episode of nausea with vomit. In the ED work-up showed evidence of elevated white count but otherwise all LFTs were normal, her physical examination and was remarkable for pain in the right upper quadrant but no evidence of Clark sign there was an ultrasound done which showed thickening of the gallbladder but there was no pericholecystic fluid. I was consulted for these findings. Medications/Allergies Home Medications Medication Instructions Recorded Confirmed Last Taken Type Lactobacillus 25 billion 2 cap PO QAM 03/30/23 03/30/23 03/30/23 History cell-Bifido 25 billion [id number] capsule acetaminophen 500 mg tablet 1,000 mg PO Q6H PRN Pain 03/30/23 03/30/23 03/30/23 03:30 History ciprofloxacin HCl 500 mg tablet 500 mg PO Q12H #14 tabs 03/30/23 Unknown Rx (Cipro) meloxicam 7.5 mg tablet 7.5 mg PO DAILY #7 tabs 03/30/23 Unknown Rx metronidazole 500 mg tablet 500 mg PO BID 7 days #14 tabs 03/30/23 Unknown Rx ondansetron 4 mg disintegrating 4 mg PO Q8H PRN nausea and 03/30/23 Unknown Rx tablet vomiting #14 tabs Allergies Allergy/AdvReac Type Severity Reaction Status Date / Time cephalexin Allergy ALGY-Hives Verified 03/30/23 12:14 Current Medications Generic Name Dose Route Start Last Admin Trade Name Freq PRN Reason Stop Dose Admin Sodium Chloride 1,000 mls @ 999 mls/hr 03/30/23 16:12 03/30/23 16:49 Sodium Chloride 0.9% IV 03/30/23 17:12 999 mls/hr .Q1H1M ONE Administration Ciprofloxacin/Dextrose 200 mg in 100 mls @ 100 mls/hr 03/30/23 16:35 03/30/23 16:57 Cipro IV 03/30/23 17:34 100 mls/hr ONCE ONE Administration Protocol PFSH Acute PFSH: Medical History Anemia Anxiety Psychiatric care Vaginal delivery Surgical History S/P wisdom tooth extraction 12/2016- outpatient Family History Family/Other No problems noted. Other Unknown family medical history Social History Smoking and tobacco status: current some day smoker cigarettes Packs smoked per day: 1 Years cigarettes smoked: 2 Alcohol intake: former Substance/Drug Use: never Vitals/I&O/Wt Last Vital Signs Temp 98.8 F 03/30/23 16:07 Pulse 111 H 03/30/23 16:07 Resp 16 03/30/23 16:07 BP 107/72 03/30/23 16:07 Pulse Ox 98 03/30/23 16:07 O2 Del Method Room Air 03/30/23 16:07 Weight last 48 hrs Weight 160 lb Physical Exam Narrative: General : Patient is well developed , no acute distress, oriented x3 Head : Normal cephalic, a-traumatic. Nose : Mucous membranes are without erythema. Lungs : Equal chest rise bilaterally, no use of accessory muscles, trachea is midline. CV : Rate and rhythm are normal. Abdomen : Soft, mild to moderate tenderness in the right upper quadrant no M urphy sign. Extremities : No edema. Upper extremities are normal bilaterally. Back : non-tender to palpation, no CVA tenderness. Data 03/30/23 13:48 03/30/23 13:48 Micro: Microbiology 03/30/23 16:38 Blood Culture - Preliminary Blood SPECIMEN COLLECTED A&P Assessment and plan (1) Cholelithiasis: Qualifiers: Biliary obstruction: without biliary obstruction Cholecystitis presence: without cholecystitis Cholelithiasis location: gallbladder Qualified Code(s): K80.20 - Calculus of gallbladder without cholecystitis without obstruction Plan After a complete history, physical evaluation and review of all available clinical data the following is my assessment. Patient clinical presentation is equivocal for acute cholecystitis, even in the event of acute cholecystitis, at this point it has been more than 72 hours from initiation of symptoms, which will indicate that the best approach for her will be to continue with antibiotic therapy and provide an interval cholecystectomy. That being said, I will be more inclined in calling this chronic cholecystitis with an acute episode of biliary colic. we plan to start the patient on antibiotics for 1 week, we will also provide meloxicam for 1 week in order to help with the symptoms and the inflammation. I will see the patient in the clinic in 1 week and we will decide on the timing of surgery. Patient will be given warning signs to return to the ED in case of worsening, if that is the case we will admit her for IV antib iotics. Coding Level of Care Code Acute [facility] Diagn[facility] Cholelithiasis K80.20 Biliary obstruction: without biliary obstruction Cholecystitis presence: without cholecystitis Cholelithiasis location: gallbladder
[2023-03-30] MEDS: metroNIDAZOLE IV 500 MG/100 ML PREMIX 100 MG IV (18:06)
--- NOTE | 2023-03-31 08:50 | DCPLANNER ---
Addendum entered by Elida Tang 04/06/23 09:05: Patient did attend appointment scheduled with general surgery Addendum entered by Elida Tang 03/31/23 13:47: Patient has a follow up appointment scheduled for Monday, April 03, 2023 at 8:[address] Licona at general surgery. Original Note: manager investigations had message to schedule a follow up appointment for patient with general surgery. manager investigations sent patients information to the front office staff at general surgery. Patients information will be printed and reviewed. Clinic will call patient with appointment information.
== END 2023-03-30 18:26 | disposition home or self-care (01) ==
PROVIDERS: Emergency Provider Physician Assistant; PCP Obstetrics & Gynecology
DX: K80.20 Calculus of gallbladder without cholecystitis without obstruction (principal); F17.210 Nicotine dependence, cigarettes, uncomplicated
CPT/HCPCS: 36415; 76705; 80053; 81001; 83690; 84703; 85025; 87040; 96365; 96375; 99284; J0744; J3490; J7030

== ENCOUNTER 2023-04-13 19:47 | Emergency (ER) | payer OTHER, MEDICAID, SELFPAY ==
[2023-04-13 19:48] VITALS: BMI 33.0
[2023-04-13 19:51] VITALS: BP 108/69; PULSE 100; RESP 16; TEMP 36.6; O2SAT 98
[2023-04-13 20:07] LABS: Basophils # 0.1 10^3/uL (0.0-0.1); Basophils % 0.4 %; Eosinophils # 0.9 10^3/uL (0.0-0.8); Eosinophils % 5.3 %; Hematocrit 35.6 % (36-47); Lymphocytes # 6.3 10^3/uL (0.8-4.8); Lymphocytes % 39.3 %; Mean Corpuscular HGB Conc 30.6 g/dL (30-55); Mean Corpuscular Hemoglobin 19.3 pg (27-33); Mean Corpuscular Volume 62.9 fl (85-98); Mean Platelet Volume 8.7 fL (7.4-10.4); Monocytes # 0.8 10^3/uL (0.2-0.9); Monocytes % 5.2 %; Neutrophils # 7.87 10^3/uL (1.8-7.7); Neutrophils % 49.6 %; Nucleated Red Blood Cells % 0 %; Platelet Count 664 10^3/cmm (157-399); Red Blood Count 5.66 10^6/uL (3.85-5.65); Red Cell Distribution Width 16.4 % (12.1-15.1); White Blood Count 15.89 10^3/uL (3.29-11.43)
--- NOTE | 2023-04-13 20:20 | ED_ITS ---
HPI - Abdominal Pain General: Chief Complaint: Abdominal Pain Stated Complaint: abdominal pain Time Seen by Provider: 04/13/23 19:58 History of Present Illness: 22-year-old female comes in today with right upper quadrant abdominal pain. Patient has severe onset of pain while at work. Patient reports that she was diagnosed with gallstones with possible cholecystitis. Patient just finished antibiotics about 7 days ago. Patient appears nontoxic. Patient appears in mild to moderate pain. Associated Symptoms: Reports nausea Related Data: Date of Last Menstrual Period: 03/30/23 Review of Systems General: Reports: 10 or more systems reviewed and unremarkable except in HPI and below GI: Reports: abdominal pain and nausea PFS ED PFSH: Medical History Anemia Anxiety Psychiatric care Vaginal delivery Surgical History S/P wisdom tooth extraction 12/2016- outpatient Family History Family/Other No problems noted. Other Unknown family medical history Social History Smoking and tobacco status: current some day smoker cigarettes Packs smoked per day: 1 Years cigarettes smoked: 2 Alcohol intake: former Substance/Drug Use: never Female Reproductive History: Date of last menstrual period: 03/30/23 Physical Exam Const: COMMON NORMALS: alert HENMT: COMMON NORMALS: normocephalic HEAD & SCALP: normocephalic Neck/C-Spine: COMMON NORMALS: full ROM Resp: COMMON NORMALS: normal respiratory effort and clear to auscultation bilaterally AUSCULTATION: clear to auscultation bilaterally Cardio: COMMON NORMALS: regular rate RATE: regular rate GI: COMMON NORMALS: Soft to palpation PALPATION: Yes Soft to palpation and Yes Tenderness to palpation present (GI) Details: RUQ Extremity: COMMON NORMALS: normal to inspection Neuro: SENSORIUM/ORIENTATION: Yes alert Skin: COMMON NORMALS: turgor normal GENERAL SKIN EXAM: turgor normal Course 2 Vital Signs: Vital signs: Vital Signs Temperature 97.9 F 04/13/23 19:51 Pulse Rate 112 H 04/13/23 21:35 Respiratory Rate 16 04/13/23 21:35 Blood Pressure 114/81 04/13/23 21:35 Pulse Oximetry 100 04/13/23 21:35 Oxygen Delivery Me thod Room Air 04/13/23 21:35 MDM - Abdominal Pain Medical Decision Making 22-year-old female comes in today with complaints of right upper quadrant abdominal pain. On exam patient appears nontoxic. Abdomen soft with some right upper quadrant tenderness. Bowel sounds are present. Patient reports 1 episode of emesis with severe pain. Patient has a known gallstones. Differential diagnosis includes biliary colic, urinary tract infection, renal calculi, pancreatitis, choledocholithiasis. Patient has no fever. CBC and CMP noted some mild leukocytosis at 15,000 which is improved from last exam. CMP was normal with no abnormal liver enzymes. Lipase was normal. Believe patient probably has some gallbladder colic due to gallstones. Patient was treated for pain had improvement of pain will be sent home with medications for pain and dis comfort with recommendations for follow-up with surgeon. Case management was asked to contact the surgeon's office to see if there is any way she can have her surgical appointment moved up. Patient reported understanding and agreed to plan. Lab Data 04/13/23 20:00 04/13/23 20:00 Labs/Radiology: Laboratory Results WBC 15.89 10^3/uL (3.29-11.43) H 04/13/23 20:00 RBC 5.66 10^6/uL (3.85-5.65) H 04/13/23 20:00 Hgb 10.90 g/dL (11.27-16.99) L 04/13/23 20:00 Hct 35.6 % (36-47) L 04/13/23 20:00 MCV 62.9 fl (85-98) L 04/13/23 20:00 MCH 19.3 pg (27-33) L 04/13/23 20:00 MCHC 30.6 g/dL (30-55) 04/13/23 20:00 RDW 16.4 % (12.1-15.1) H 04/13/23 20:00 Plt Count 664 10^3/cmm (157-399) H 04/13/23 20:00 MPV 8.7 fL (7.4-10.4) 04/13/23 20:00 Neut % (Auto) 49.6 % 04/13/23 20:00 Lymph % (Auto) 39.3 % 04/13/23 20:00 [place] % (Auto) 5.2 % 04/13/23 20:00 Eos % (Auto) 5.3 % 04/13/23 20:00 Baso % (Auto) 0.4 % 04/13/23 20:00 Neut # (Auto) 7.87 10^3/uL (1.8-7.7) H 04/13/23 20:00 Lymph # (Auto) 6.3 10^3/uL (0.8-4.8) H 04/13/23 20:00 [place] # (Auto) 0.8 10^3/uL (0.2-0.9) 04/13/23 20:00 Eos # (Auto) 0.9 10^3/uL (0.0-0.8) H 04/13/23 20:00 Baso # (Auto) 0.1 10^3/uL (0.0-0.1) 04/13/23 20:00 Nucleated RBC % (auto) 0 % 04/13/23 20:00 Nucleated RBCs # 0.0 /100WBC 04/13/23 20:00 Sodium 138 mmol/L (136-145) 04/13/23 20:00 Potassium 3.5 mmol/L (3.5-5.1) 04/13/23 20:00 Chloride 101 mmol/L (98-107) 04/13/23 20:00 Carbon Dioxide 25 mmol/L (22-29) 04/13/23 20:00 Anion Gap 15.5 (5-19) 04/13/23 20:00 BUN 13 mg/dL (6-20) 04/13/23 20:00 Creatinine 0.6 mg/dL (0.5-0.9) 04/13/23 20:00 GFR Calculation 125.0 mL/min (90-130) 04/13/23 20:00 Glucose 137 mg/dL (65-115) H 04/13/23 20:00 Calculated Osmolality 288 mOsm/kg (285-295) 04/13/23 20:00 Calcium 8.6 mg/dL (8.5-10.5) 04/13/23 20:00 Total Bilirubin 0.4 mg/dL (0.15-1.2) 04/13/23 20:00 AST 21 U/L (0-32) 04/13/23 20:00 ALT 15 U/L (0-33) 04/13/23 20:00 Alkaline Phosphatase 65 U/L (35-105) 04/13/23 20:00 Total Protein 7.7 g/dL (6.6-8.7) 04/13/23 20:00 Albumin 4.3 g/dL (3.5-5.2) 04/13/23 20:00 Globulin 3.4 g/dL (1.3-4.6) 04/13/23 20:00 Lipase 24 U/L (13-60) 04/13/23 20:00 Urine Color Yellow (Yellow) 04/13/23 21:00 Urine Appearance Clear (CLEAR) 04/13/23 21:00 Urine pH 5 (5-7) 04/13/23 21:00 Ur Specific [place] 1.030 (1.005-1.030) 04/13/23 21:00 Urine Protein Neg (Negative) 04/13/23 21:00 Urine Glucose (UA) Norm (Normal) 04/13/23 21:00 Urine Ketones 1+ (Negative) H 04/13/23 21:00 Urine Blood Neg (Negative) 04/13/23 21:00 Urine Nitrate Negative (Negative) 04/13/23 21:00 Urine Bilirubin Neg (Negative) 04/13/23 21:00 Urine Urobilinogen Neg mg/dL (Negative) 04/13/23 21:00 Ur Leukocyte Esterase Negative (Negative) 04/13/23 21:00 Discharge Plan Discharge Patient Disposition: Home Clinical Impression: Gallbladder colic Condition: Stable Prescriptions: New meloxicam 7.5 mg tablet 7.5 mg PO BID PRN (Reason: pain) Qty: 20 0RF ondansetron HCl 4 mg tablet 4 mg PO Q8H PRN (Reason: nausea and vomiting) Qty: 14 0RF hydrocodone-acetaminophen 5-325 mg tablet 1 tab PO TID PRN (Reason: pain (scale score 7-10)) Qty: 12 0RF No Action Tylenol Ex Str Rapid Release 500 mg Tablet 1,000 mg PO Q6H PRN (Reason: Pain) Women's Probiotic 25B cell-25B cell-50 mg Capsule 2 cap PO QAM Cipro 500 mg tablet 500 mg PO Q12H Qty: 14 0RF meloxicam 7.5 mg tablet 7.5 mg PO DAILY Qty: 7 0RF ondansetron 4 mg tablet,disintegrating 4 mg PO Q8H PRN (Reason: nausea and vomiting) Qty: 14 0RF Discharge Orders: Discharge ED (Routine); Ordered 04/13/23 Ordered By: Marcus Kinney Discharge Diet: Advance as tolerated Discharge Activity: Increase activity as tolerated Patient Instructions: Biliary Colic (ED), Abdominal Pain (ED), Opioid Safety Activity Restrictions/Additional Instructions: Continue with routine care. Case management will contact you regarding a repeat follow-up appointment with surgery. Use medications as directed. Drink plenty of water and fluids. Start with a clear liquid diet and increase back to your normal diet avoiding high fat foods. Return to ED for worsening symptoms such as uncontrolled pain, inability to hold fluids down, blood in vomit or stool, or fever greater than 100.4. Coding Level of Care Code ED Mis Manager for Corby Ordoñez
[2023-04-13] MEDS: sodium chloride 0.9% 1,000 ML 999 ML IV (20:27)
[2023-04-13] MEDS: ondansetron 2 mg/ML SDV 2 mL 4 MG IVP (20:29)
[2023-04-13 20:30] VITALS: RESP 16; O2SAT 100
[2023-04-13 20:30] LABS: Slide Review Slide Review Perform
[2023-04-13] MEDS: ketorolac 30 mg/mL INJ 15 MG IVP (20:30)
[2023-04-13] MEDS: fentaNYL 50 mcg/mL INJ 2mL 70 MCG IVP (20:30)
[2023-04-13 20:38] LABS: Alanine Aminotransferase 15 U/L (0-33); Albumin Level 4.3 g/dL (3.5-5.2); Alkaline Phosphatase 65 U/L (35-105); Anion Gap 15.5 (5-19); Aspartate Amino Transferase 21 U/L (0-32); Blood Urea Nitrogen 13 mg/dL (6-20); Calcium 8.6 mg/dL (8.5-10.5); Carbon Dioxide 25 mmol/L (22-29); Chloride 101 mmol/L (98-107); Globulin 3.4 g/dL (1.3-4.6); Glucose 137 mg/dL (65-115); Lipase 24 U/L (13-60); Osmolality Calculated 288 mOsm/kg (285-295); Potassium 3.5 mmol/L (3.5-5.1); Sodium 138 mmol/L (136-145); Total Bilirubin 0.4 mg/dL (0.15-1.2); Total Protein 7.7 g/dL (6.6-8.7)
[2023-04-13 21:19] LABS: Add Urine Microscopic? NO; Charge for UA Resulting for Rev
[2023-04-13 21:24] LABS: Bilirubin Urine Neg (Negative); Blood Urine Neg (Negative); Glucose Urine UA Norm (Normal); Ketones Urine 1+ (Negative); Leukocyte Esterase Urine Negative (Negative); Nitrate Urine Negative (Negative); Protein Urine Neg (Negative); Urine Appearance Clear (CLEAR); Urine Color Yellow (Yellow); Urobilinogen Urine Neg (Negative); pH Urine 5 (5-7)
[2023-04-13 21:33] VITALS: RESP 16
[2023-04-13] MEDS: HYDROmorphone 1 mg/mL INJ 1 mL IVP (21:33)
[2023-04-13 21:35] VITALS: BP 114/81; PULSE 112; RESP 16; O2SAT 100
[2023-04-13 22:31] VITALS: BP 121/81; O2SAT 100
--- NOTE | 2023-04-14 07:31 | DCPLANNER ---
Addendum entered by Elida Tang 04/16/23 14:21: Patient has a pre op appointment scheduled for 06.02.23 at 7:00. Original Note: commercial intelligence manager had message to schedule a follow up appointment for patient with general surgery. commercial intelligence manager sent patients information to the front office staff at general surgery. Patients information will be printed and reviewed. Clinic will call patient with appointment information.
== END 2023-04-13 22:52 | disposition home or self-care (01) ==
PROVIDERS: Emergency Provider Nurse Practitioner Family
DX: K80.20 Calculus of gallbladder without cholecystitis without obstruction (principal)
CPT/HCPCS: 80053; 81003; 83690; 85025; 96361; 96374; 96375; 99284; J1170; J1885; J2405; J3010; J7030

== ENCOUNTER 2023-04-14 10:20 | Emergency (ER) | payer OTHER, MEDICAID, SELFPAY ==
[2023-04-14] VITALS (7 sets, daily range): BP systolic 114–125; BP diastolic 68–83; PULSE 72–96; RESP 15–18; TEMP 36.6; O2SAT 98–100; BMI 33.0
--- NOTE | 2023-04-14 10:29 | W.ED.ABDPA2 ---
HPI - Abdominal Pain General: Chief Complaint: Abdominal Pain Stated Complaint: abd pain Time Seen by Provider: 04/14/23 10:25 Source: patient Mode of arrival: ambulatory History of Present Illness: 22-year-old female presents emergency room with abdominal pain and right upper quadrant. She was seen last evening with biliary colic and was discharged home on antibiotics. She was initially seen on 828 she had a surgery consult at that ER visit and was discharged home on Cipro and Flagyl. After this she was seen in the office on 04/03/2023 and advised to have cholecystectomy in 6 weeks. She returned to the emergency room last evening she had finished her antibiotics 7 days prior she had worsening biliary colic again. Her white count was 15.8, her lipase was normal she was discharged home with pain medications. She returns now with worsening symptoms. MD elicited complaint: abdominal pain Pertinent past history: none Onset (ago): minute(s) Pain Consistency: constant Location: RUQ Quality: cramping and sharp Exacerbating factors: eating Relieving factors: nothing Associated Symptoms: Reports bloating, GI cramping, nausea, poor appetite and vomiting; Denies belching, change in bowel habits, change in stool character, chills, coffee ground emesis, constipation, diarrhea, dyspepsia, dysuria, excessive flatus, fever(s), heartburn, hematochezia, hematuria, hematemesis, fecal incontinence, loose stools, melena, syncope and other Review of Systems Const: Denies: fever(s) or chills ENMT: Denies: throat pain, ear or mastoid pain, nasal discharge or nasal congestion Card: Denies: syncope Resp: Denies: dyspnea, productive cough or non-productive cough GI: Reports: abdominal pain, nausea, vomiting, bloating and GI cramping; Denies: hematemesis, coffee ground emesis, heartburn, diarrhea, constipation, belching, excessive flatus, fecal incontinence, change in bowel habits, change in stool character, hematochezia, melena or other : Denies: dysuria, urinary frequency, urinary urgency or hematuria Skin/Breast: Denies: rash or pruritus PFSH ED PFSH: Medical History Anemia Anxiety Psychiatric care Vaginal delivery Surgical History S/P wisdom tooth extraction 12/2016- outpatient Family History Family/Other No problems noted. Other Unknown family medical history Social History Smoking and tobacco status: current some day smoker cigarettes Packs smoked per day: 1 Years cigarettes smoked: 2 Alcohol intake: former Substance/Drug Use: never Physical Exam Const: GENERAL APPEARANCE: cooperative and comfortable ORIENTATION/CONSCIOUSNESS: Yes awake, Yes oriented to person, Yes oriented to place and Yes oriented to time HENMT: COMMON NORMALS: normocephalic, atraumatic and hearing grossly normal bilaterally HEAD & SCALP: normocephalic and atraumatic Resp: COMMON NORMALS: normal respiratory effort, No retractions, No use of accessory muscles and clear to auscultation bilaterally AUSCULTATION: clear to auscultation bilaterally Cardio: COMMON NORMALS: regular rate, regular rhythm and No murmurs present (Cardio) RATE: regular rate RHYTHM: regular rhythm GI: COMMON NORMALS: No hepatosplenomegaly present AUSCULTATION: Yes normoactive bowel sounds PALPATION: Yes Tenderness to palpation present (GI) Details: RUQ, No Guarding due to palpation present (GI) and Yes No hepatosplenomegaly present Extremity: COMMON NORMALS: normal to inspection, capillary refill normal, no clubbing, cyanosis or edema, no calf tenderness and no pedal edema Neuro: SENSORIUM/ORIENTATION: Yes oriented to person, Yes oriented to place and Yes oriented to time Skin: COMMON NORMALS: no rashes or lesions noted GENERAL SKIN EXAM: no rashes or lesions noted Course Vital Signs: Vital signs: Vital Signs Temperature 97.9 F 04/14/23 10:34 Pulse Rate 96 04/14/23 10:55 Respiratory Rate 15 04/14/23 10:34 Blood Pressure 116/78 04/14/23 10:55 Pulse Oximetry 99 04/14/23 10:55 Oxygen Delivery Me thod Room Air 04/14/23 10:55 MDM - Abdominal Pain Medical Decision Making Choledocholithiasis with a stone lodged in the duct elevation liver enzymes although lipase is still normal. Patient be given Zosyn and will look for placement to tertiary care facility with ERCP capacity. Dr. Roberson at [facility] in [place] is excepted on transfer be transferred via ambulance. Medical Records I reviewed the patient's medical records. Lab Data I reviewed the patient's lab results. 04/14/23 11:18 04/14/23 11:18 Labs/Radiology: Laboratory Results WBC 10.51 10^3/uL (3.29-11.43) 04/14/23 11:18 RBC 5.34 10^6/uL (3.85-5.65) 04/14/23 11:18 Hgb 10.30 g/dL (11.27-16.99) L 04/14/23 11:18 Hct 34.1 % (36-47) L 04/14/23 11:18 MCV 63.9 fl (85-98) L 04/14/23 11:18 MCH 19.3 pg (27-33) L 04/14/23 11:18 MCHC 30.2 g/dL (30-55) 04/14/23 11:18 RDW 16.7 % (12.1-15.1) H 04/14/23 11:18 Plt Count 552 10^3/cmm (157-399) H 04/14/23 11:18 MPV 8.7 fL (7.4-10.4) 04/14/23 11:18 Neut % (Auto) 66.1 % 04/14/23 11:18 Lymph % (Auto) 24.1 % 04/14/23 11:18 [place] % (Auto) 3.8 % 04/14/23 11:18 Eos % (Auto) 5.4 % 04/14/23 11:18 Baso % (Auto) 0.3 % 04/14/23 11:18 Neut # (Auto) 6.95 10^3/uL (1.8-7.7) 04/14/23 11:18 Lymph # (Auto) 2.5 10^3/uL (0.8-4.8) 04/14/23 11:18 [place] # (Auto) 0.4 10^3/uL (0.2-0.9) 04/14/23 11:18 Eos # (Auto) 0.6 10^3/uL (0.0-0.8) 04/14/23 11:18 Baso # (Auto) 0.0 10^3/uL (0.0-0.1) 04/14/23 11:18 Nucleated RBC % (auto) 0 % 04/14/23 11:18 Nucleated RBCs # 0.0 /100WBC 04/14/23 11:18 Sodium 137 mmol/L (136-145) 04/14/23 11:18 Potassium 4.2 mmol/L (3.5-5.1) 04/14/23 11:18 Chloride 104 mmol/L (98-107) 04/14/23 11:18 Carbon Dioxide 25 mmol/L (22-29) 04/14/23 11:18 Anion Gap 12.2 (5-19) 04/14/23 11:18 BUN 13 mg/dL (6-20) 04/14/23 11:18 Creatinine 0.6 mg/dL (0.5-0.9) 04/14/23 11:18 GFR Calculation 125.0 mL/min (90-130) 04/14/23 11:18 Glucose 123 mg/dL (65-115) H 04/14/23 11:18 Calculated Osmolality 285 mOsm/kg (285-295) 04/14/23 11:18 Calcium 8.4 mg/dL (8.5-10.5) L 04/14/23 11:18 Total Bilirubin 0.6 mg/dL (0.15-1.2) 04/14/23 11:18 AST 92 U/L (0-32) H 04/14/23 11:18 ALT 52 U/L (0-33) H 04/14/23 11:18 Alkaline Phosphatase 105 U/L (35-105) 04/14/23 11:18 Total Protein 7.0 g/dL (6.6-8.7) 04/14/23 11:18 Albumin 3.9 g/dL (3.5-5.2) 04/14/23 11:18 Globulin 3.1 g/dL (1.3-4.6) 04/14/23 11:18 Lipase 26 U/L (13-60) 04/14/23 11:18 HCG, Qual Negative (Negative) 04/14/23 11:18 Urine Color Yellow (Yellow) 04/14/23 10:57 Urine Appearance Sl hazy (CLEAR) A 04/14/23 10:57 Urine pH 7 (5-7) 04/14/23 10:57 Ur Specific [place] 1.015 (1.005-1.030) 04/14/23 10:57 Urine Protein Neg (Negative) 04/14/23 10:57 Urine Glucose (UA) Norm (Normal) 04/14/23 10:57 Urine Ketones Negative (Negative) 04/14/23 10:57 Urine Blood Neg (Negative) 04/14/23 10:57 Urine Nitrate Negative (Negative) 04/14/23 10:57 Urine Bilirubin Neg (Negative) 04/14/23 10:57 Urine Urobilinogen Norm mg/dL (Negative) 04/14/23 10:57 Ur Leukocyte Esterase Negative (Negative) 04/14/23 10:57 Urine RBC 0-4 /hpf (0-2) H 04/14/23 10:57 Urine WBC 0-4 /hpf (0-5) H 04/14/23 10:57 Ur Squamous Epith Cells 10-15 /hpf (0-5) H 04/14/23 10:57 Amorphous Sediment Not Reportable 04/14/23 10:57 Urine Bacteria Trace /hpf (NONE) 04/14/23 10:57 Discharge Plan Discharge Patient Disposition: Xfer Short-Term Hosp Clinical Impression: Choledocholithiasis Condition: Stable Prescriptions: No Action acetaminophen [Tylenol Ex Str Rapid Release] 500 mg Tablet 1,000 mg PO Q6H PRN (Reason: Pain) meloxicam 7.5 mg tablet 7.5 mg PO BID PRN (Reason: pain) Qty: 20 0RF Rx Instructions: rx written 04/13/23 pt states not filled ondansetron HCl 4 mg tablet 4 mg PO Q8H PRN (Reason: nausea and vomiting) Qty: 14 0RF Rx Instructions: rx written 04/13/23 pt states not filled hydrocodone-acetaminophen 5-325 mg tablet 1 tab PO TID PRN (Reason: pain (scale score 7-10)) Qty: 12 0RF Rx Instructions: rx written 04/13/23 pt states not filled Coding Level of Care Code ED Liner Helper for g Tiago
--- NOTE | 2023-04-14 10:43 | US_ITS ---
WS: [id number] RIGHT UPPER QUADRANT ULTRASOUND HISTORY: cholecystitis COMPARISON: 03/30/2023 Liver: 16.1 cm in length. Normal size liver and echogenicity. No bile duct dilatation or mass. Portal Vein: Normal hepatopetal flow with monophasic waveform. Gallbladder: Abnormal gallbladder. The gallbladder is markedly contracted. New finding since the prio r study. Patient has known cholelithiasis. There are numerous small stones identified on the study of 03/30/2023. Gallbladder wall is difficult to identify due to the contraction and shadowing. No perich olecystic fluid identified. Small portion of the wall identified is 3.9 mm. CBD: 0.8 cm, common bile duct has increased in size from 5 mm to 8 mm. Pancreas: Normal size and echogenicity. No dilated common bile duct at the pancreatic head. Right kidney: 10.1 cm in length. Normal size and echogenicity. No hydronephrosis or mass. Aorta and IVC: Unremarkable abdominal aorta and IVC. No ascites. IMPRESSION: 1. Cholelithiasis in a contracted gallbladder. Patient has known cholelithiasis. Gallbladder is now c ontracted which is new. Recommend surgical evaluation and cholecystectomy. 2. New dilatation of the common bile duct. Common bile duct on 03/30/2023 is 5 mm and now measures 8 m m. Choledocholithiasis should be considered. Follow-up MRCP recommended.
[2023-04-14 11:23] LABS: Urine Appearance SL Hazy (CLEAR); Urine Color Yellow (Yellow)
[2023-04-14 11:24] LABS: Add Urine Culture? No; Add Urine Microscopic? YES; Bacteria Urine TRACE /hpf; Bilirubin Urine Neg (Negative); Blood Urine Neg (Negative); Glucose Urine UA Norm (Normal); Ketones Urine Negative (Negative); Leukocyte Esterase Urine Negative (Negative); Nitrate Urine Negative (Negative); Protein Urine Neg (Negative); RBC Urine 0-4 /hpf (0-2); Specific Gravity, Urine 1.015 (1.005-1.030); Urobilinogen Urine Norm (Negative); WBC Urine 0-4 /hpf (0-5); pH Urine 7 (5-7)
[2023-04-14 11:26] LABS: Basophils % 0.3 %; Eosinophils # 0.6 10^3/uL (0.0-0.8); Eosinophils % 5.4 %; Hematocrit 34.1 % (36-47); Lymphocytes # 2.5 10^3/uL (0.8-4.8); Lymphocytes % 24.1 %; Mean Corpuscular HGB Conc 30.2 g/dL (30-55); Mean Corpuscular Hemoglobin 19.3 pg (27-33); Mean Corpuscular Volume 63.9 fl (85-98); Mean Platelet Volume 8.7 fL (7.4-10.4); Monocytes # 0.4 10^3/uL (0.2-0.9); Monocytes % 3.8 %; Neutrophils # 6.95 10^3/uL (1.8-7.7); Neutrophils % 66.1 %; Nucleated Red Blood Cells % 0 %; Platelet Count 552 10^3/cmm (157-399); Red Blood Count 5.34 10^6/uL (3.85-5.65); Red Cell Distribution Width 16.7 % (12.1-15.1); White Blood Count 10.51 10^3/uL (3.29-11.43)
[2023-04-14 11:38] LABS: HCG, Serum Qual Negative (Negative)
[2023-04-14 11:44] LABS: Alanine Aminotransferase 52 U/L (0-33); Albumin Level 3.9 g/dL (3.5-5.2); Alkaline Phosphatase 105 U/L (35-105); Anion Gap 12.2 (5-19); Aspartate Amino Transferase 92 U/L (0-32); Blood Urea Nitrogen 13 mg/dL (6-20); Calcium 8.4 mg/dL (8.5-10.5); Carbon Dioxide 25 mmol/L (22-29); Chloride 104 mmol/L (98-107); Globulin 3.1 g/dL (1.3-4.6); Glucose 123 mg/dL (65-115); Lipase 26 U/L (13-60); Osmolality Calculated 285 mOsm/kg (285-295); Potassium 4.2 mmol/L (3.5-5.1); Sodium 137 mmol/L (136-145); Total Bilirubin 0.6 mg/dL (0.15-1.2)
--- NOTE | 2023-04-14 12:08 | MR_ITS ---
WS: [id number] MRCP (MAGNETIC RESONANCE CHOLANGIOPANCREATOGRAPHY) HISTORY: dialated CBD, cholelithiasis COMPARISON: Gallbladder ultrasound 04/14/2023 and 03/30/2023 TECHNIQUE: Multiple sequences are performed to evaluate the intra and extrahepatic ducts. Gallbladder is contracted and stone filled. There is mild gallbladder wall thickening and edema. The edema is more prominent as noted by MRI as compared to the ultrasound. No intrahepatic duct dilatatio n. Common bile duct is mildly dilated to 7.6 mm which corresponds to the ultrasound findings. In the distal common bile duct there is a 5 mm filling defect consistent with choledocholithiasis. Only a si ngle stone is identified within the common bile duct. Indeterminate for a distal stone of similar siz e near the ampulla. Numerous stones fill the gallbladder neck. Patient is is at risk for developing a choledochal fistula due to the numerous stones with impaction. Liver is mildly enlarged with loss of signal on the out of phase imaging from hepatic steatosis. Norm al size spleen. Negative pancreas. No pancreatic duct dilatation. No ascites. IMPRESSION: 1. Choledocholithiasis. A single 5 mm stone is identified in the common bile duct. Smaller more dista l stone at the ampulla is not excluded. 2. Stone filled contracted gallbladder with a small amount of adjacent edema. 3. No intrahepatic duct dilatation.
--- NOTE | 2023-04-14 12:49 | PC.NURSE ---
PT VITALS AT 1249 UNABLE TO BE UPDATES, PT IN MRI
[2023-04-14] MEDS: ondansetron 2 mg/ML SDV 2 mL 4 MG IVP (13:56)
[2023-04-14] MEDS: sodium chloride 0.9% 1,000 ML 999 ML IV (13:56)
[2023-04-14] MEDS: ketorolac 30 mg/mL INJ IVP (13:56)
[2023-04-14] MEDS: piperacillin-tazobactam 3.375 GM in sodium chloride 0.9% (plus) 50 ML IV (14:22)
--- NOTE | 2023-04-14 16:15 | PC.NURSE ---
PT PAIN ASSESSED, RATED 8/10 PT WOULD LIKE TO LET FLUIDS RUN FOR 30 MINUTES THEN ASSESS
[2023-04-14] MEDS: morphine 4 mg/mL SDV 1 mL IVP (17:22)
== END 2023-04-14 22:02 | disposition short-term general hospital (02) ==
PROVIDERS: Physician Assistant; Emergency Provider Family Medicine
DX: K80.50 Calculus of bile duct without cholangitis or cholecystitis without obstruction (principal); F17.210 Nicotine dependence, cigarettes, uncomplicated
CPT/HCPCS: 36415; 74181; 76705; 80053; 81001; 83690; 84703; 85025; 96365; 96366; 96375; 99284; J1885; J2270; J2405; J2543; J7030

== ENCOUNTER → 2023-12-30 08:08 | Outpatient (BNVA) | payer MEDICAID, SELFPAY | PROVIDERS: Visit Provider Nurse Practitioner Women's Health | DX: N92.6 Irregular menstruation, unspecified (principal); Z34.90 Encounter for supervision of normal pregnancy, unspecified, unspecified trimester | CPT/HCPCS: 81025; 84702 ==

== ENCOUNTER → 2024-01-05 10:22 | Outpatient (BNVA) | payer MEDICAID, SELFPAY | PROVIDERS: Visit Provider Nurse Practitioner Women's Health | DX: Z36.87 Encounter for antenatal screening for uncertain dates (principal) | CPT/HCPCS: 76801 ==

== ENCOUNTER → 2024-01-13 07:53 | Outpatient (BNVA) | payer MEDICAID, SELFPAY | PROVIDERS: Visit Provider Nurse Practitioner Women's Health | DX: Z34.90 Encounter for supervision of normal pregnancy, unspecified, unspecified trimester (principal) | CPT/HCPCS: 80307; 81000; 85025; 86592; 86762; 86803; 86850; 86900; 87086; 87340; 87806 ==

== ENCOUNTER → 2024-02-12 08:09 | Outpatient (BNVA) | payer MEDICAID, SELFPAY | PROVIDERS: Visit Provider Obstetrics & Gynecology | DX: Z34.80 Encounter for supervision of other normal pregnancy, unspecified trimester (principal) | CPT/HCPCS: 81000; 87491; 87591 ==

== ENCOUNTER → 2024-03-22 14:18 | Outpatient (BNVA) | payer MEDICAID, SELFPAY | PROVIDERS: Visit Provider Obstetrics & Gynecology | DX: Z36.2 Encounter for other antenatal screening follow-up (principal); Z3A.20 20 weeks gestation of pregnancy | CPT/HCPCS: 76805 ==

== ENCOUNTER → 2024-04-01 | Outpatient (BNVA) | payer OTHER, MEDICAID, SELFPAY | PROVIDERS: Visit Provider Nurse Practitioner Women's Health | DX: Z34.80 Encounter for supervision of other normal pregnancy, unspecified trimester (principal); Z34.90 Encounter for supervision of normal pregnancy, unspecified, unspecified trimester | CPT/HCPCS: 80307 ==

== ENCOUNTER 2024-04-19 08:13 | Oncology outpatient (recurring) (ONCR) | payer MEDICAID, SELFPAY ==
[2024-04-19 08:42] LABS: Basophils % 0.2 %; Eosinophils # 0.3 10^3/uL (0.0-0.8); Eosinophils % 2.8 %; Hematocrit 33.8 % (36-47); Lymphocytes # 2.7 10^3/uL (0.8-4.8); Lymphocytes % 24.8 %; Mean Corpuscular HGB Conc 31.4 g/dL (30-55); Mean Corpuscular Hemoglobin 20.2 pg (27-33); Mean Corpuscular Volume 64.3 fl (85-98); Mean Platelet Volume 8.7 fL (7.4-10.4); Monocytes # 0.5 10^3/uL (0.2-0.9); Monocytes % 4.3 %; Neutrophils # 7.44 10^3/uL (1.8-7.7); Neutrophils % 67.6 %; Nucleated Red Blood Cells % 0 %; Platelet Count 404 10^3/cmm (157-399); Red Blood Count 5.26 10^6/uL (3.85-5.65); Red Cell Distribution Width 16.5 % (12.1-15.1)
[2024-04-19 08:56] LABS: Albumin Level 3.6 g/dL (3.5-5.2); Alkaline Phosphatase 118 U/L (35-105); Anion Gap 16.8 (5-19); Aspartate Amino Transferase 15 U/L (0-32); Blood Urea Nitrogen 8 mg/dL (6-20); Calcium 7.8 mg/dL (8.5-10.5); Carbon Dioxide 21 mmol/L (22-29); Chloride 101 mmol/L (98-107); Ferritin 9 ng/mL (15-150); Globulin 3.4 g/dL (1.3-4.6); Glomerular Filtration Rate 152.9 mL/min (90-130); Glucose 160 mg/dL (65-115); Iron 56 ug/dL (37-145); Osmolality Calculated 282 mOsm/kg (285-295); Percent Saturation 16.2 % (20-50); Potassium 3.8 mmol/L (3.5-5.1); Sodium 135 mmol/L (136-145); Total Bilirubin 0.3 mg/dL (0.15-1.2); Total Iron Binding Capacity 345 mcg/dl; Unsaturated Iron Binding 289 ug/dL (112-347)
[2024-04-19 09:06] LABS: Alanine Aminotransferase 21 U/L (0-33)
== END 2024-05-02 23:59 | disposition home or self-care (01) ==
PROVIDERS: Absent Provider Obstetrics & Gynecology; Visit Provider Internal Medicine Medical Oncology
DX: D50.8 Other iron deficiency anemias (principal)
CPT/HCPCS: 36415; 80053; 82728; 83540; 83550; 85025

== ENCOUNTER 2024-05-13 08:59 | Oncology outpatient (recurring) (ONCR) | payer MEDICAID, SELFPAY ==
[2024-05-13] MEDS: rho(d) immune globulin 1,500 unit Syringe 1500 UNIT IM (09:28)
== END 2024-06-02 23:59 | disposition home or self-care (01) ==
LOC: ONCMED 09:00
PROVIDERS: Absent Provider Obstetrics & Gynecology; Visit Provider Internal Medicine Medical Oncology
DX: D50.8 Other iron deficiency anemias (principal)
CPT/HCPCS: 96372; J2790

== ENCOUNTER 2024-07-06 12:20 | Outpatient (CLI) | payer MEDICAID, SELFPAY ==
[2024-07-06 12:29] VITALS: BP 125/86; PULSE 115
[2024-07-06 12:35] VITALS: BMI 34.7
[2024-07-06 12:44] VITALS: BP 107/62; PULSE 103
== END 2024-07-06 13:15 | disposition home or self-care (01) ==
LOC: OPOB 12:24 → OBGYN 12:25
PROVIDERS: Visit Provider Family Medicine
DX: O24.419 Gestational diabetes mellitus in pregnancy, unspecified control (principal); Z3A.00 Weeks of gestation of pregnancy not specified
CPT/HCPCS: 59025

== ENCOUNTER 2024-07-11 11:45 | Outpatient (CLI) | payer MEDICAID, SELFPAY ==
[2024-07-11 11:45] VITALS: BMI 35.1
[2024-07-11 11:57] VITALS: BP 100/57; PULSE 102
[2024-07-11 12:17] VITALS: BP 91/54; PULSE 100
== END 2024-07-11 12:30 | disposition home or self-care (01) ==
LOC: OPOB 11:48 → OBGYN 11:49
PROVIDERS: Visit Provider Family Medicine
DX: O24.419 Gestational diabetes mellitus in pregnancy, unspecified control (principal); Z3A.00 Weeks of gestation of pregnancy not specified
CPT/HCPCS: 59025; 99211

== ENCOUNTER 2024-07-14 03:26 | Inpatient (IN) | payer OTHER, MEDICAID, SELFPAY ==
[2024-07-14] VITALS (19 sets, daily range): BP systolic 103–124; BP diastolic 58–73; PULSE 80–112; TEMP 35.8–36; BMI 35.5
[2024-07-14 03:59] LABS: Basophils % 0.1 %; Eosinophils # 0.2 10^3/uL (0.0-0.8); Eosinophils % 1.4 %; Hematocrit 32.5 % (36-47); Lymphocytes # 2.7 10^3/uL (0.8-4.8); Lymphocytes % 20.7 %; Mean Corpuscular HGB Conc 31.7 g/dL (30-55); Mean Corpuscular Hemoglobin 20.1 pg (27-33); Mean Corpuscular Volume 63.4 fl (85-98); Mean Platelet Volume 9.1 fL (7.4-10.4); Monocytes # 0.5 10^3/uL (0.2-0.9); Monocytes % 3.9 %; Neutrophils # 9.76 10^3/uL (1.8-7.7); Neutrophils % 73.6 %; Nucleated Red Blood Cells % 0 %; Platelet Count 422 10^3/cmm (157-399); Red Blood Count 5.13 10^6/uL (3.85-5.65); Red Cell Distribution Width 15.9 % (12.1-15.1); White Blood Count 13.26 10^3/uL (3.29-11.43)
[2024-07-14] MEDS: miSOPROStol 100 mcg tablet 25 MCG SUBLINGUAL ×2 (10:20→14:55)
[2024-07-14 13:35] LABS: Amphetamines Screen Urine Negative (Negative); Barbiturates Screen Urine Negative (Negative); Benzodiazepines Screen Urine Negative (Negative); Cocaine Screen Urine Negative (Negative); Opiate Screen Urine Negative (Negative); PCP Screen Urine Negative (Negative); THC Screen Urine Positive (Negative)
--- NOTE | 2024-07-14 16:39 | PM.OPHPUD ---
Labor & Delivery H&P Update Date of Procedure: July 14, 2024 Date H&P Performed: 07/07/24 Admission Diagnosis: 24-year-old 3 para 2-0-0-2 at 37 weeks estimated gestational age presenting with spontaneous rupture membranes Planned procedure: Vaginal delivery Other information: The patient presented to the hospital with spontaneous rupture membranes. She was having very mild contractions at the time of admission. She had no other complaints. Her was relatively unremarkable. Her care was initiated with women's health at the hospital. She then transferred to our facility for the remainder of her . Her initial lab work was obtained by [facility] in the hospital. She was found to be gestational diabetic. She had excellent control of her diabetes with metformin and diet. She was GBS negative. She was found to be positive for marijuana earlier in her as well as during this admission. Her infectious disease profile was within normal limits. Her blood type is B-. Her antibody screen is negative. She is also a heterozygous positive for thalassemia beta positive. She is rubella immune. Related Problem List Diagnoses (1) 37 weeks gestation of : (2) Spontaneous rupture of membranes: A&P Assessment and plan (1) 37 weeks gestation of : I anticipate routine labor and delivery. We have augmented her labor with Cytotec x 2. We will initiate Pitocin if she is not in labor adequately at that time. Status: Acute (2) Spontaneous rupture of membranes: Status: Acute
[2024-07-14] MEDS: dextrose 5%-lactated ringers 1,000 ML 125 ML IV (20:13)
[2024-07-14] MEDS: oxytocin 30 UNIT/500 ML BAG IV (20:13)
[2024-07-14 21:23] LABS: Glucose Point of Care 135 mg/dL (70-110)
[2024-07-14] MEDS: ondansetron 2 mg/ML SDV 2 mL 4 MG IVP (22:42)
[2024-07-15] VITALS (73 sets, daily range): BP systolic 84–122; BP diastolic 47–83; PULSE 57–111; RESP 16–17; TEMP 36.4–36.7; O2SAT 92–100; BMI 35.5
[2024-07-15] MEDS: dextrose 5%-lactated ringers 1,000 ML 125 ML IV ×2 (03:58→18:06)
--- NOTE | 2024-07-15 06:39 | P.PN_ITS ---
ELECTRO PLATER Subjective 2 Subjective: Interval history: The patient has had rupture membranes for about 30 hours. She has been given Cytotec 25 mcg x 2. She has been on Pitocin for around 12 hours. Her cervix has gone from about 3-1/2 last night at 9:00 PM to about one half this morning at 6:30 AM. The baby has been having recurrent early decelerations which are now converting to late decelerations. Short term variability is okay, but long- term variability is diminished. Labor: Station: -2 Amniotic Membrane Status: Ruptured Monitor Mode: External Contraction Pattern: Regular Vitals/I&O/Wt Last Vital Signs Temp 96.8 F L 07/14/24 14:56 Pulse 77 07/15/24 01:47 Resp 16 07/15/24 06:27 BP 112/72 07/15/24 01:47 O2 Del Method Room Air 07/14/24 03:30 07/14/24 07/14/24 07/15/24 14:59 22:59 06:59 Intake Total 5.033 / 5.033 1023.834 / 1028.867 Balance 5.033 / 5.033 1023.834 / 1028.867 Weight last 48 hrs Weight 170 lb Weight 170 lb Physical Exam 2 Narrative: The patient is alert. She is in pain during contractions. Her heart has a regular rate and rhythm with no murmurs appreciated. Lungs are clear to auscultation bilaterally. She is gravid Cervix is 4 and half to 5 cm. She is 90% effaced. Vertex position. The baby's head is not putting pressure on the cervix at this time. Data 07/14/24 03:30 A&P Assessment and plan (1) Non-reassuring heart tones complicating , antepartum: Because the heart tones have become more concerning, and the mother is making minimal change in the face of prolonged rupture membranes, a section is the safest and most appropriate choice at this point. I discussed this with the mother. We discussed the risk of bleeding, infection, and damage intra-abdominal organs. She no further questions and wishes to proceed. (2) 37 weeks gestation of : (3) Prolonged rupture of membranes: Attestations 2 Medical Necessity Statement*: I anticipate routine and post care. Coding Level of Care Code Acute Code for Chg Fwd Diagnoses Non-reassuring heart tones complicating , antepartum O36.8390 37 weeks gestation of Z3A.37 Prolonged rupture of membranes O42.90
[2024-07-15] MEDS: lactated ringers 1,000 ML 999 ML IV (06:43)
[2024-07-15] MEDS: famotidine 20 mg/2 mL INJ IVP (06:44)
[2024-07-15] MEDS: metoclopramide 5 mg/mL SDV 2 mL 10 MG IVP (06:44)
[2024-07-15] MEDS: citric acid-sodium citrate 30 mL UDC PO (06:44)
[2024-07-15] MEDS: BUPivacaine 0.5% INJ 30 mL INJECTION (07:10)
--- NOTE | 2024-07-15 07:40 | PC.NURSE ---
Xochitl Agosto RN titrated pitocin to 5 ml/hr at 0640, unable to chart titration on mar at this time.
--- NOTE | 2024-07-15 08:01 | PM.OP ---
Operative Report Date of procedure: July 15, 2024 Pre-op diagnosis: 24-year-old 3 para 2-0-0-2 at 37 weeks with nonreassuring heart tones, failure to progress, prolonged rupture membranes, and gestational diabetes Post-op diagnosis: Status post section Procedure done: Low-transverse section Specimens removed/disposition: 1. Male infant with a weight of 5 pounds 2 ounces and Apgars of 8 and 9 2. Placenta with a three-vessel cord delivered intact 3. Bilateral fallopian tube segments with the right segment being tagged Surgeon: Steve Sanchez MD Estimated blood loss (mL): 300 Complications: None Procedure: The patient was brought back to the operating room where she was prepped and draped in usual sterile fashion. Anesthesia was found to be adequate. A lower transverse skin incision was then made with a #10 blade. I then dissected down to the underlying subcutaneous tissue until arriving at the prerectal fascia. The fascia was then nicked with the scalpel bilaterally. The fascial incisions were then carried laterally with Kwan scissors. Attention was then turned to the superior aspect of the incision which was grasped with kochers and tented up away from the underlying rectus abdominis muscles. The muscles were then dissected away from the fascia manually, and later with Kwan scissors. Attention was then turned to the inferior aspect of the incision, and the fascia was dissected away from the underlying muscle in similar fashion. The rectus abdominis muscles were then spread manually. The peritoneum was entered manually. Excellent visualization of the uterus was noted. A lower transverse uterine incision was then made with a #10 blade. Upon arriving at the intrauterine cavity, the uterine incision was then extended manually. The was noted to be in vertex position. The baby was delivered without difficulty. After delivery of the head, the mouth and nose were suctioned at the site of the incision. There was no meconium. There was no nuchal cord. The remainder of the body was then delivered and placed on the abdomen. The cord was cut and clamped. The baby was then handed to the waiting nurse. The placenta was removed intact. The uterus was externalized. The intrauterine cavity was cleansed of any remaining debris. The uterine incision was reapproximated in 2 layers. The first layer was performed with 0 Vicryl in a running locked stitch. The second layer was an imbricating stitch also using 0 Vicryl. Attention was then turned to the right fallopian tube which was ligated cut and cauterized in a modified [place] fashion with chromic gut. Attention was then turned to the left fallopian tube which was also ligated cut and cauterized in similar fashion. The uterus was replaced into the abdomen. The peritoneum was then irrigated with warm saline. I reexamined the uterine incision and found it to be hemostatic. The rectus abdominis muscles were then reapproximated using 0 Vicryl in a running stitch. The fascia was then reapproximated using 0 Vicryl in running stitch. The subcutaneous tissue was then reapproximated using 0 Vicryl in a running stitch as well. The skin was reapproximated using peggy. A sterile dressing was placed. All counts were correct x2. Both the mother and baby were in stable condition.
--- NOTE | 2024-07-15 08:09 | ANES.PREANE2 ---
Pre-Anesthetic Assessment Height/Weight: Height 1.47 m Weight 77.111 kg Temp Pulse Resp BP O2 Del Method 96.8 F L 77 16 112/72 Room Air 07/14/24 14:56 07/15/24 01:47 07/15/24 06:27 07/15/24 01:47 07/14/24 03:30 Preop Diagnosis: unreassuring heart tone pattern urgent section Familial anesthetic complications: none Was Beta Magdalena taken within 24 hours: N/A Was Clonidine taken within 24 hours: N/A Last intake: 1200 07/14/24 meal clears - current Social THC toxicology + Exam alert, oriented x 3, clear to auscultation bilaterally and regular rate & rhythm Airway Submandibular: within normal limits Cervical ROM: within normal limits Mallampati: Class II Dentition: full Comments: Comments: plastic nose ring in place Pulmonary None reported CV/HEM Anemia (Thalassemia) Hgb 10.8 platelets over 400 None reported Hepatic None reported GI Gastroesophageal Reflux Disease Metabolic Diabetes Mellitus (gestational) and Morbid Obesity [facility] [place] None reported Neuropsych None reported Anesthetic Plan ASA status: 3 Anesthesia: Eval. for regional block Other: SAB discussed with patient as well as bleeding risk. Patient reports previous epidural with no complications. Medications/Allergies Home Medications Medication Instructions Recorded Confirmed Last Taken Type vitamin#30 30 mg iron-10 1 cap PO DAILY 12/30/23 07/14/24 07/13/24 History mg iron-folic acid 1 mg-omg3 capsule metformin 500 mg tablet 500 mg PO PRN 07/14/24 07/14/24 Unknown History Allergies Allergy/AdvReac Type Severity Reaction Status Date / Time cephalexin Allergy ALGY-Hives Verified 07/14/24 04:35 Current Medications Generic Name Dose Route Start Last Admin Trade Name Freq PRN Reason Stop Dose Admin Dextrose/Lactated Ringer's 1,000 mls @ 125 mls/hr 07/14/24 03:45 07/15/24 03:58 Dextrose 5%-Lactated Ringers IV 125 mls/hr .Q8H JESSICA Administration Ondansetron HCl 4 mg 07/14/24 03:35 07/14/24 22:42 Ondansetron 2 Mg/Ml Sdv 2 Ml IVP 4 mg Q4H PRN Administration NAUSEA AND VOMITING PFSH Anesthesia Medical History (Updated 07/15/24 @ 06:42 by Steve Sanchez MD) Iron deficiency anemia Beta thalassemia trait Anxiety Surgical History (Updated 04/19/24 @ 17:40 by Nic Boss MD) History of cholecystectomy (04/2023) S/P wisdom tooth extraction 12/2016- outpatient Family History Family/Other No problems noted. Other Unknown family medical history Social History Smoking and tobacco/nicotine status: tobacco/nicotine user, details unknown (vape) Female Reproductive History : 3 Data Anesthesia 07/14/24 03:30 Short CBC 07/14/24 Range/Units 03:30 WBC 13.26 H (3.29-11.43) 10^3/uL Hgb 10.30 L (11.27-16.99) g/dL Hct 32.5 L (36-47) % MCV 63.4 L (85-98) fl Plt Count 422 H (157-399) 10^3/cmm Neut % (Auto) 73.6 % Neut # (Auto) 9.76 H (1.8-7.7) 10^3/uL Blood Bank 07/14/24 03:30 Blood Type B Negative Rho(D) Type Rh negative Antibody Screen Negative Cardiac Studies: No Data to Display
[2024-07-15] MEDS: ondansetron 2 mg/ML SDV 2 mL 4 MG IVP (09:02)
--- NOTE | 2024-07-15 09:30 | ANE.PACU2 ---
Inpatient post-anesthesia follow up: Airway intact: Yes Vital signs: Temperature 97.8 F Pulse Rate 89 Respiratory Rate 16 Blood Pressure 102/59 Pulse Oximetry 99 Oxygen Delivery Me thod Room Air Oxygen Flow Rate Fraction of Inspir ed Oxygen Hydration adequate: Yes Nausea and vomiting: No Pain level: 1 Mental status: Baseline
[2024-07-15] MEDS: diphenhydrAMINE 50 mg/mL SDV 1mL 25 MG IVP (09:42)
[2024-07-15 12:39] LABS: Glucose Point of Care 124 mg/dL (70-110)
[2024-07-15] MEDS: acetaminophen 325 mg Tablet 650 MG PO ×2 (12:40→18:08)
[2024-07-15] MEDS: ketorolac 30 mg/mL INJ IVP ×2 (15:37→22:19)
[2024-07-15 17:31] LABS: Hematocrit 32.4 % (36-47); Mean Corpuscular HGB Conc 31.2 g/dL (30-55); Mean Corpuscular Hemoglobin 19.9 pg (27-33); Mean Corpuscular Volume 63.9 fl (85-98); Mean Platelet Volume 9.8 fL (7.4-10.4); Platelet Count 445 10^3/cmm (157-399); Red Blood Count 5.07 10^6/uL (3.85-5.65); Red Cell Distribution Width 15.9 % (12.1-15.1); White Blood Count 21.31 10^3/uL (3.29-11.43)
[2024-07-15 17:32] LABS: Glucose Point of Care 101 mg/dL (70-110)
[2024-07-15] MEDS: docusate sodium 100 mg Capsule PO (18:06)
[2024-07-15] MEDS: ferrous sulfate EC 325 mg Tablet PO (18:06)
[2024-07-15 23:03] LABS: Glucose Point of Care 106 mg/dL (70-110)
[2024-07-16 04:07] VITALS: BP 111/75; PULSE 98; RESP 16; TEMP 36.6; O2SAT 99
--- NOTE | 2024-07-16 04:13 | PC.NURSE ---
final dose of toradol not given patient taking oral well and requested that IV be removed prior to medication admin time
[2024-07-16] MEDS: acetaminophen 325 mg Tablet 650 MG PO (05:55)
[2024-07-16 06:00] VITALS: BMI 35.5
[2024-07-16] MEDS: docusate sodium 100 mg Capsule PO (08:20)
[2024-07-16] MEDS: ibuprofen 800 mg tablet PO (08:20)
[2024-07-16] MEDS: PRENATAL VIT NO.130/IRON/FOLIC 1 EACH TABLET PO (08:20)
[2024-07-16] MEDS: ferrous sulfate EC 325 mg Tablet PO (08:20)
--- NOTE | 2024-07-16 09:26 | PM.OBGYDC ---
Discharge Providers LINER REPLACER Date of Admission: 07/14/24 03:26 Date of Discharge: 07/16/24 Attending Provider at Admission: Steve Sanchez MD Attending Provider at Discharge: Steve Sanchez MD Diagnoses at Discharge Discharge Diagnosis (1) 37 weeks gestation of : Status: Acute (2) Spontaneous rupture of membranes: Status: Acute (3) Gestational diabetes: Status: Acute Reason for Visit Reason for Visit: possible ROM Hospital Course Hospital Course The patient presented to the hospital with spontaneous rupture membranes. She was given Cytotec 25 mcg x 2. She was also placed on Pitocin. Her membranes ruptured to close to 30 hours. In the last 9 hours prior to her section her cervix had gone from being 3.5 to 4.5 cm. Today began having recurrent releases and recurrent lates. As result decision was made to proceed with a section. was unremarkable. Her course was also unremarkable. She passed gas. She had a bowel movement. Her pain was well-controlled. Her urine output was appropriate. She had minimal bleeding. There were no concerns. Information Peripartum Data: Delivery Method: Physical Exam Narrative: She is in no acute distress Lungs are clear auscultation bilaterally Her heart has a regular rate and rhythm Her fundus is below the umbilicus and firm Her dressing is clean, dry and intact Her extremities have trace edema Urinary Catheter Management: Pritchard: Cath Placed During This Visit: yes, but has since been removed by the nurse Reason for Continuing Indwelling Catheter: Decision to DC Catheter Urinary Catheter Date of Insertion: 07/15/24 Urinary Catheter Time of Insertion: 07:05 Date Urinary Catheter Removed: 07/16/24 Time Urinary Catheter Discontinued: 04:06 History History History 3 Term 2 0 Miscarriages/Ectopic 0 Living Children 2 Discharge Data Studies Completed and Pending Pending at discharge Category Date Time Status Pathology: Surgical [PTH] Routine Pth 07/15/24 10:12 Received Laboratory Results WBC 21.31 10^3/uL (3.29-11.43) H 07/15/24 17:15 RBC 5.07 10^6/uL (3.85-5.65) 07/15/24 17:15 Hgb 10.10 g/dL (11.27-16.99) L 07/15/24 17:15 Hct 32.4 % (36-47) L 07/15/24 17:15 MCV 63.9 fl (85-98) L 07/15/24 17:15 MCH 19.9 pg (27-33) L 07/15/24 17:15 MCHC 31.2 g/dL (30-55) 07/15/24 17:15 RDW 15.9 % (12.1-15.1) H 07/15/24 17:15 Plt Count 445 10^3/cmm (157-399) H 07/15/24 17:15 MPV 9.8 fL (7.4-10.4) 07/15/24 17:15 Neut % (Auto) 73.6 % 07/14/24 03:30 Lymph % (Auto) 20.7 % 07/14/24 03:30 [place]rick % (Auto) 3.9 % 07/14/24 03:30 Eos % (Auto) 1.4 % 07/14/24 03:30 Baso % (Auto) 0.1 % 07/14/24 03:30 Neut # (Auto) 9.76 10^3/uL (1.8-7.7) H 07/14/24 03:30 Lymph # (Auto) 2.7 10^3/uL (0.8-4.8) 07/14/24 03:30 Warrick # (Auto) 0.5 10^3/uL (0.2-0.9) 07/14/24 03:30 Eos # (Auto) 0.2 10^3/uL (0.0-0.8) 07/14/24 03:30 Baso # (Auto) 0.0 10^3/uL (0.0-0.1) 07/14/24 03:30 Nucleated RBC % (auto) 0 % 07/14/24 03:30 Nucleated RBCs # 0.0 /100WBC 07/14/24 03:30 POC Glucose 106 mg/dL (70-110) 07/15/24 22:44 Urine Opiates Screen Negative ng/mL (Negative) 07/14/24 13:04 Ur Barbiturates Screen Negative ng/mL (Negative) 07/14/24 13:04 Ur Phencyclidine Scrn Negative ng/mL (Negative) 07/14/24 13:04 Ur Amphetamines Screen Negative ng/mL (Negative) 07/14/24 13:04 U Benzodiazepines Scrn Negative ng/mL (Negative) 07/14/24 13:04 Urine Cocaine Screen Negative ng/mL (Negative) 07/14/24 13:04 U Marijuana (THC) Screen Positive ng/mL (Negative) H 07/14/24 13:04 Blood Type B Negative 07/14/24 03:30 Rho(D) Type Rh negative 07/14/24 03:30 Antibody Screen Negative 07/14/24 03:30 Vitals Last Vital Signs Temp 97.8 F 07/16/24 04:07 Pulse 98 07/16/24 04:07 Resp 16 07/16/24 04:07 BP 111/75 07/16/24 04:07 Pulse Ox 99 07/16/24 04:07 O2 Del Method Room Air 07/16/24 04:07 Results Labs OB ([facility]): Obstetrics US 10/14/22 Blood Type B Negative 07/14/24 Antibody Screen Negative 07/14/24 Hct 32.4 % (36-47) L 07/15/24 Hgb 10.10 g/dL (11.27-16.99) L 07/15/24 Rho(D) Type Rh negative 07/14/24 Plt Count 445 10^3/cmm (157-399) H 07/15/24 Hep Bs Antigen Non-reactive (NON-REACTIVE) 01/13/24 Hep Bs Ag Confirmation Not Reportable 01/13/24 Hep Bs Antibody 8.8 (11.5-1000) L 01/15/23 Hepatitis C Antibody Non-reactive (Nonreactive) 01/13/24 Rubella IgG Antibody 44.5 IU/mL (0.0-10.0) H 01/13/24 RPR Nonreactive (Nonreactive) 01/13/24 HIV 1&2 Ab & HIV 1 Ag Non-reactive (Non-Reactiv) 01/13/24 C.trachomatis RNA (TMA) Not detected (NOT DETECTED) 02/12/24 N.gonorrhoeae RNA (TMA) Not detected (NOT DETECTED) 02/12/24 T. vaginalis Amp RNA Not detected (NOT DETECTED) 02/12/24 Chlamydia/GC Comment See note 02/12/24 Cystic Fibrosis Screen See comments 02/12/24 VZV IgG Antibody 600.00 index 01/15/23 Ser , Semi-Qnt 81520.00 mIU/mL 12/30/23 HCG, Qual Positive (Negative) H 12/30/23 Urine Opiates Screen Negative ng/mL (Negative) 07/14/24 Ur Barbiturates Screen Negative ng/mL (Negative) 07/14/24 Ur Phencyclidine Scrn Negative ng/mL (Negative) 07/14/24 Ur Amphetamines Screen Negative ng/mL (Negative) 07/14/24 U Benzodiazepines Scrn Negative ng/mL (Negative) 07/14/24 Urine Cocaine Screen Negative ng/mL (Negative) 07/14/24 U Marijuana (THC) Screen Positive ng/mL (Negative) H 07/14/24 Micro Urine Specimen 01/13/24 Discharge Plan Discharge Patient Disposition: Home Condition: Stable Prescriptions: New ibuprofen 800 mg Tablet 800 mg PO TID Qty: 45 0RF hydrocodone-acetaminophen 5-325 mg Tablet 1 tab PO Q4H PRN (Reason: Moderate To Severe Pain) Qty: 20 0RF Continued PNV #[id number] 30 mg iron-10 mg iron-1 mg capsule 1 cap PO DAILY Discontinued metformin 500 mg Tablet 500 mg PO PRN Discharge Orders: Discharge Order (Routine); Ordered 07/16/24 Ordered By: Steve Sanchez Discharge Diet: Usual diet Discharge Activity: Limit activity as instructed Patient Instructions: Opioid Safety Discharge Attestations LINER REPLACER Time Spent in Discharge Care*: less than 30 min Coding Level of Care Code Acute Code for Chg Fwd Diagnoses 37 weeks gestation of Z3A.37 Spontaneous rupture of membranes Gestational diabetes O24.419
[2024-07-16 12:19] VITALS: BP 102/59; PULSE 114
[2024-07-16 13:00] VITALS: BP 102/59; PULSE 89; RESP 16; TEMP 36.6
== END 2024-07-16 13:00 | disposition home or self-care (01) | DRG 784 ==
LOC: OPOB 08:05 → OBGYN 08:05
PROVIDERS: Admitting Provider Family Medicine; Visit Provider Family Medicine
PROC: 10D00Z1 Extraction of Products of Conception, Low, Open Approach (ICD-10-PCS; CPT 59514; principal; 2024-07-15 06:50)
DX: O24.425 Gestational diabetes mellitus in childbirth, controlled by oral hypoglycemic drugs (principal); O63.9 Long labor, unspecified; O99.324 Drug use complicating childbirth; F12.90 Cannabis use, unspecified, uncomplicated; O76 Abnormality in fetal heart rate and rhythm complicating labor and delivery; Z3A.37 37 weeks gestation of pregnancy; Z37.0 Single live birth; Z30.2 Encounter for sterilization; D56.1 Beta thalassemia; O75.89 Other specified complications of labor and delivery; O42.02 Full-term premature rupture of membranes, onset of labor within 24 hours of rupture
CPT/HCPCS: 36415; 36416; 51702; 59025; 59409; 80306; 82962; 83986; 85025; 85027; 86850; 86900; 88302; 96374; 96376; 98960; 99211; J1200; J1885; J2274; J2405; J2590; J2765; J3010; J3490; J7120; J7121